=== PATIENT | male | born 1935 | race African-American/Black ===

== ENCOUNTER 2016-06-08 19:23 | Observation (INO) | payer MEDICARE ==
[2016-06-08] VITALS (8 sets, daily range): BP systolic 181–237; BP diastolic 73–108; PULSE 58–81; RESP 18–20; TEMP 97.5–97.8; O2SAT 96–99
[~2016-06-08] VITALS: Ht 180.3 cm; Wt 87.3 kg
[~2016-06-08 19:23] MED LIST: ADAL30TA10 PO; ASPI81 PO; LISI-586 PO; LORTA5 PO; LOVA40TA PO; METF500 PO; NAPR250T57 PO
[2016-06-08] MEDS ORDERED: SODIUM CHLORIDE 0.9% FLUSH 5 ML FLUSH IVF PRN ×2 (19:30→21:45)
[2016-06-08] MEDS ORDERED: ASPIRIN 325 MG TAB PO ONE (19:45)
[2016-06-08] MEDS ORDERED: NITROGLYCERIN 0.4 MG SL 25 TABS/BTL SL ONE (19:45)
[2016-06-08] MEDS ORDERED: LISI20TA PO (19:49)
[2016-06-08] MEDS ORDERED: NAPR500T PO (19:49)
[2016-06-08] MEDS ORDERED: METF500T PO (19:49)
[2016-06-08] MEDS ORDERED: ASPI81CH CHEW (19:49)
--- NOTE | 2016-06-08 19:56 | PD ---
HPI Chief Complaint: Chest Pain Time Seen by Provider: 19:53 Travel History International Travel<30 days: No Contact w/Intl Traveler<30days: No Traveled to known affect area: No History of Present Illness HPI 80-year-old male that presents to the ED for evaluation of severe left-sided chest pain that started about a couple of hours ago. Per patient he denies any injury. He is never had anything like this before. He does have a history of hypertension, diabetes, smoking as well as family history of heart disease. He is never had any problems with his heart. He has no senior occupational therapist. He appears to be compliant with medications. Per patient he does take aspirin every day but he did took one today. Per patient the pain is sharp and constant. States mainly on the left side. Does radiate to the left arm. States having some dizziness as well. No abdominal pain. No nausea or vomiting. No allergies to medication. PFSH Past Medical History Cancer: Yes (prostate) Diabetes: Yes Patient Takes Glucophage: Yes Diminished Hearing: Yes Glaucoma: No Hepatitis: No Hiatal Hernia: No Hypertension: Yes Medical other: Yes (colonoscopy) Thyroid Disease: No Influenza Vaccination: No Past Surgical History Abdominal Surgery: No Cardiac Surgery: No Ear Surgery: No Endocrine Surgery: No Eye Surgery: Yes (BILATERAL CATARACTS REMOVED) Genitourinary Surgery: No Gynecologic Surgery: No Oral Surgery: No Thoracic Surgery: No Other Surgery: Yes Social History Alcohol Use: No Tobacco Use: Yes (1 ppd) Substance Use: No Allergies-Medications (Allergen,Severity, Reaction): Coded Allergies: No Known Allergies (Unverified , 06/08/16) Reported Meds & Prescriptions Reported Meds & Active Scripts Active Reported Naproxen 500 Mg Tab 500 Mg PO BID Metformin (Metformin HCl) 500 Mg Tab 500 Mg PO BIDPC With meals Lisinopril-Hctz 20-12.5 Mg Tab 1 Tab PO BID Aspirin 81 Mg Chew 162 Mg CHEW DAILY Review of Systems General / Constitutional: No: Fever, Chills, Weight Gain, Weight Loss, Other Eyes: No: Diploplia, Blurred Vision, Photophobia, Drainage, Redness, Foreign Body Sensation, Pain, Tearing, Blind Spots, Visual changes, Blindness, Other HENT: No: Headaches, Vertigo, Lightheadedness, Sore Throat, Rhinitis, Rhinorrhea, Congestion, Nosebleed, Neck Stiffness, Neck Pain, Masses, Gingival Bleeding, Dental Difficulties, Ear Discharge, Earache, Other Cardiovascular: Positive: Chest Pain or Discomfort, No: Palpitations, Irregular Rhythm, Tachycardia, Diaphoresis, Syncope, Dyspnea on exertion, Varicosities, Edema, Cyanosis, Varicosities, Phlebitis, Claudication, Other Respiratory: Positive: Shortness of Breath, No: Cough, Wheezing, Sneezing, Orthopnea, Hemoptysis, Stridor, Night Sweats, Pleuritic Pain, Other Gastrointestinal: No: Nausea, Vomiting, Diarrhea, Abdominal Pain, Hematemesis, Hematochezia, Constipation, Changes in Bowel Habits, Indigestion, Dysphagia, Loss of Appetite, Other Genitourinary: No: Urgency, Frequency, Dysuria, Nocturia, Hematuria, Decreased Urinary Output, Oliguria, Hesitancy, Dribbling, Incontinence, Pelvic Pain, Flank Pain, Dyspareunia, Discharge, Dysmenorrhea, Menorrhagia, Metorrhagia, Vaginal Bleeding, Other Musculoskeletal: No: Myalgias, Arthralgias, Limited ROM, Weakness, Cramping, Edema, Pain, Atrophy, Other Skin: No Rash, No Itching, No Dryness, No Lumps, No Hives, No Change in Pigmentation, No Change in nails, No Alopecia, No Lesions, No Breast Lumps, No Breast Tenderness, No Breast Swelling, No Other Neurologic: No: Weakness, Dizziness, Syncope, Focal Abnormalities, Coordination Problem, Tremor, Ataxia, Headache, Change in Mentation, Slurred Speech, Paresthesia, Incontinence, Seizures, Sensory Disturbance, Other Psychiatric: No: Anxiety, Depression, Suicidal Ideations, Disorder of Thought, Mood Disorder, Substance Abuse, Homicidal Ideation, Other Endocrine: No: Heat Intolerance, Cold Intolerance, Polyuria, Polydipsia, Other Hematologic/Lymphatic: No: Easy Bruising, Lymph Node Enlargement, Other Physical Exam Narrative GENERAL: SKIN: Warm and dry. HEAD: Atraumatic. Normocephalic. EYES: Pupils equal and round. No scleral icterus. No injection or drainage. ENT: No nasal bleeding or discharge. Mucous membranes pink and moist. Tongue is midline. No uvula deviation. NECK: Trachea midline. No JVD. CARDIOVASCULAR: Regular rate and rhythm. No murmurs, S3, S4. Chest and is not reproducible with touch. RESPIRATORY: No accessory muscle use. Clear to auscultation. Breath sounds equal bilaterally. GASTROINTESTINAL: Abdomen soft, non-tender, nondistended. Hepatic and splenic margins not palpable. MUSCULOSKELETAL: Extremities without clubbing, cyanosis, or edema. No obvious deformities. Full range of motion of the upper and lower extremity is bilaterally. 2+ pulses bilaterally. NEUROLOGICAL: Awake and alert. No obvious cranial nerve deficits. Motor grossly within normal limits. Five out of 5 muscle strength in the arms and legs. Normal speech. PSYCHIATRIC: Appropriate mood and affect; insight and judgment normal. Data Data Last Documented VS Vital Signs Date Time Temp Pulse Resp B/P Pulse Ox O2 Delivery O2 Flow Rate FiO2 06/08/16 21:27 75 18 201/85 96 Room Air 06/08/16 19:43 97.8 Orders Electrocardiogram (06/08/16 19:30) Ckmb (Isoenzyme) Profile (06/08/16 19:30) Complete Blood Count With Diff (06/08/16 19:30) Comprehensive Metabolic Panel (06/08/16 19:30) Magnesium (Mg) (06/08/16 19:30) Prothrombin Time / Inr (Pt) (06/08/16 19:30) Act Partial Throm Time (Ptt) (06/08/16 19:30) Troponin I (06/08/16 19:30) Lipase (06/08/16 19:30) Chest, Single Ap (06/08/16 19:30) Ecg Monitoring (06/08/16 19:30) Bilateral Bp Monitoring (06/08/16 19:30) Iv Access Insert/Monitor (06/08/16 19:30) Oximetry (06/08/16 19:30) Oxygen Administration (06/08/16 19:30) Sodium Chloride 0.9% Flush (Ns Flush) (06/08/16 19:30) Aspirin (Aspirin) (06/08/16 19:45) Nitroglycerin Sl (Nitrostat Sl) (06/08/16 19:45) CKMB (06/08/16 19:40) CKMB% (06/08/16 19:40) Admit Order (Ed Use Only) (06/08/16 21:44) Activity Bed Rest With Brp (06/08/16 21:45) Vital Signs (Adult) Q4H (06/08/16 21:45) Cardiac Rhythm .As Directed (06/08/16 21:45) ^ Notify Dr: Other .PRN (06/08/16 21:45) ^ Notify Dr. Parameters (06/08/16 21:45) Resp Oxygen Nasal Cannula (06/08/16 ) Ckmb (Isoenzyme) Profile (06/08/16 22:40) Ckmb (Isoenzyme) Profile (06/09/16 01:40) Troponin I (06/08/16 22:40) Troponin I (06/09/16 01:40) Electrocardiogram (06/08/16 22:40) Electrocardiogram (06/09/16 01:40) ^ Obtain (06/08/16 21:45) Sodium Chloride 0.9% Flush (Ns Flush) (06/08/16 21:45) Sodium Chloride 0.9% Flush (Ns Flush) (06/09/16 09:00) Acetaminophen (Tylenol) (06/08/16 21:45) Acetamin-Hydrocod 325-7.5 Mg ([place] 7.5 (06/08/16 21:45) Nitroglycerin 2% Oint (Nitroglycerin 2% (06/09/16 00:00) Medicare Sales Executive / Telemetry HOLA.Q8H (06/08/16 21:45) Labs Laboratory Tests Test 06/08/16 19:40 White Blood Count 7.4 TH/MM3 Red Blood Count 4.46 MIL/MM3 Hemoglobin 9.1 GM/DL Hematocrit 29.5 % Mean Corpuscular Volume 66.1 FL Mean Corpuscular Hemoglobin 20.4 PG Mean Corpuscular Hemoglobin 30.9 % Concent Red Cell Distribution Width 18.3 % Platelet Count 240 TH/MM3 Mean Platelet Volume 8.4 FL Neutrophils (%) (Auto) % Lymphocytes (%) (Auto) % Monocytes (%) (Auto) % Eosinophils (%) (Auto) % Basophils (%) (Auto) % Neutrophils # (Auto) TH/MM3 Lymphocytes # (Auto) TH/MM3 Monocytes # (Auto) TH/MM3 Eosinophils # (Auto) TH/MM3 Basophils # (Auto) TH/MM3 CBC Comment AUTO DIFF Prothrombin Time 10.8 SEC Prothromb Time International 1.0 RATIO Ratio Activated Partial 25.8 SEC Thromboplast Time Sodium Level 139 MEQ/L Potassium Level 3.6 MEQ/L Chloride Level 101 MEQ/L Carbon Dioxide Level 31.3 MEQ/L Anion Gap 7 MEQ/L Blood Urea Nitrogen 17 MG/DL Creatinine 1.30 MG/DL Estimat Glomerular Filtration 64 ML/MIN Rate Random Glucose 145 MG/DL Calcium Level 8.7 MG/DL Magnesium Level 2.1 MG/DL Total Bilirubin 0.4 MG/DL Aspartate Amino Transf 18 U/L (AST/SGOT) Alanine Aminotransferase 23 U/L (ALT/SGPT) Alkaline Phosphatase 69 U/L Total Creatine Kinase 605 U/L Creatine Kinase MB 5.0 NG/ML Creatine Kinase MB % 0.8 % Troponin I 0.03 NG/ML Total Protein 7.4 GM/DL Albumin 4.0 GM/DL Lipase 156 U/L [facility] Medical Decision Making Medical Screen Exam Complete: Yes Emergency Medical Condition: Yes Medical Record Reviewed: Yes Interpretation(s) EKG shows sinus rhythm with no sign of acute ischemia or arrhythmia read by me and attending. CBC & BMP Diagram 06/08/16 19:40 Troponin and CK-MB negative. LFTs and lipase within normal limits Last Impressions Chest X-Ray 06/08/16 193 Signed Impressions: Service Date/Time: Saturday, June 08, 2016 19:54 - CONCLUSION: No evidence of consolidating airspace disease or significant congestion. Albaro Antonio MD Differential Diagnosis Chest pain versus an STEMI versus STEMI versus a typical chest pain versus pneumonia versus mass versus costochondritis Narrative Course 81-year-old male that presents to the ED for evaluation of left-sided chest pain. Patient was properly examined and was found to have signs and symptoms consistent with appears to be concerning for ACS. Patient has multiple risk factors including age, hypertension, diabetes, smoker. Labs and imaging ordered. Patient was given aspirin as well as nitroglycerin. Case was discussed in my attending who agrees with plan. Labs and imaging showed no obvious sign of acute at this time. No obvious sign of CAD at this time. Impression patient so has the discomfort and his blood pressure has been very high. With one nitroglycerin patient's blood pressure became that in the 180s systolic. Patient does appear to have some hypertensive urgency. Case was discussed in my attending agrees patient requires admission for CAD rule out an hypertensive urgency. [facility] hospitalist was contacted and Dr. Wilkerson recommends admission to the chest pain center instead. Patient was admitted to the chest pain center Procedures EKG Prior to Arrival: No Diagnosis Primary Impression: Chest pain in adult Admitting Information Admitting Physician Requests: Observation Jasvir Marlow Jun 08, 2016 19:56
--- NOTE | 2016-06-08 20:31 | RADRPT ---
EXAM DATE/TIME: 06/08/2016 19:54 [facility] COMPARISON: No previous studies available for comparison. INDICATIONS : Chest pain. MEDICAL HISTORY : None. SURGICAL HISTORY : None. ENCOUNTER: Initial ACUITY: 1 day PAIN SCORE: 5/10 LOCATION: Left chest FINDINGS: A single view of the chest demonstrates the lungs to be symmetrically aerated without evidence of mas s, infiltrate or effusion. The cardiomediastinal contours are unremarkable. Osseous structures are intact. CONCLUSION: No evidence of consolidating airspace disease or significant congestion. Albaro Antonio MD on June 08, 2016 at 20:29 Board Certified Radiologist. This report was verified electronically.
[2016-06-08 20:33] LABS: APTT (PATIENT) 25.8 SEC (24.3-30.1); PROTHROMBIN TIME - PATIENT 10.8 SEC (9.8-11.6)
[2016-06-08 20:42] LABS: ANION GAP 7 MEQ/L (5-15); AST (GOT) 18 U/L (15-37); BICARBONATE 31.3 MEQ/L (21.0-32.0); BLOOD UREA NITROGEN 17 MG/DL (7-18); CHLORIDE 101 MEQ/L (98-107); GLOMERULAR FILTRATION RATE 64 ML/MIN (>89); MAGNESIUM 2.1 MG/DL (1.5-2.5); POTASSIUM 3.6 MEQ/L (3.5-5.1); SODIUM (NA) 139 MEQ/L (136-145)
[2016-06-08 20:46] LABS: ALKALINE PHOSPHATASE 69 U/L (45-117); ALT (GPT) 23 U/L (12-78); CREATINE KINASE 605 U/L (39-308); TOTAL BILIRUBIN ADULT 0.4 MG/DL (0.2-1.0)
[2016-06-08 21:17] LABS: HEMATOCRIT 29.5 % (39.0-51.0); MEAN CELL VOLUME 66.1 FL (80.0-100.0); MEAN CORPUSCULAR HEMOGLOBIN 20.4 PG (27.0-34.0); MEAN CORPUSCULAR HGB CONC 30.9 % (32.0-36.0); PLATELET COUNT 240 TH/MM3 (150-450); RED BLOOD COUNT 4.46 MIL/MM3 (4.50-5.90); RED CELL DISTRIBUTION WIDTH 18.3 % (11.6-17.2); WHITE BLOOD COUNT 7.4 TH/MM3 (4.0-11.0)
[2016-06-08 21:32] LABS: HEMO FLAGS AUTO DIFF
[2016-06-08] MEDS ORDERED: ACETAMINOPHEN 500 MG CPLT PO PRN (21:45)
[2016-06-08 22:08] LABS: BANDS 1 % (0-6); EOSINOPHILS 2 % (0-4); NEUTROPHIL # MANUAL DIFF 4.5 TH/MM3 (1.8-7.7); POLYS (SEG NEUTROPHILS) 60 % (16-70); WBC DIFF SAMPLE 100
[2016-06-08 22:09] LABS: PLATELET ESTIMATE SMEAR NORMAL (NORMAL); PLATELET MORPHOLOGY NORMAL (NORMAL); SCAN/DIFF FINAL DIFF MANUAL
[2016-06-08] MEDS: ACETAMINOPHEN/HYDROcodone 325 MG/7.5 MG TAB PO PRN (22:28)
[2016-06-08] MEDS ORDERED: NITROGLYCERIN 0.4 MG SL 25 TABS/BTL SL PRN (22:30)
[2016-06-08 23:38] LABS: CKMB 5.2 NG/ML (0.5-3.6)
[2016-06-09] MEDS: NITROGLYCERIN 2% OINT 1 GM PACKET TOP SCH ×3 (00:12→12:00)
[2016-06-09 00:46] VITALS: PULSE 56
[2016-06-09 03:04] LABS: CKMB 5.2 NG/ML (0.5-3.6)
[2016-06-09 05:37] VITALS: BP 171/82; PULSE 77; RESP 18; TEMP 98.1; O2SAT 96
[2016-06-09 07:50] VITALS: BP 183/81; PULSE 75; RESP 18; TEMP 97.1; O2SAT 96
[2016-06-09 08:30] VITALS: PULSE 77
[2016-06-09] MEDS ORDERED: SODIUM CHLORIDE 0.9% FLUSH 5 ML FLUSH IVF SCH (09:00)
[2016-06-09] MEDS ORDERED: ASPIRIN 325 MG TAB PO SCH (09:45)
[2016-06-09] MEDS ORDERED: GLUCAGON 1 MG/ML VIAL IM/SQ PRN (09:45)
[2016-06-09] MEDS ORDERED: cloNIDine HCL 0.1 MG TAB PO PRN (09:45)
[2016-06-09] MEDS ORDERED: DEXTROSE 50% IN WATER 50 ML VIAL(D50) IV PRN (09:45)
[2016-06-09] MEDS ORDERED: NON-FORMULARY DRUG (Lisinopril-Hctz 1 TAB) PO SCH (09:45)
[2016-06-09 09:59] VITALS: O2SAT 93
[2016-06-09] MEDS ORDERED: PANTOPRAZOLE SOD 40 MG DELAYED RELEASE TAB PO SCH (10:00)
[2016-06-09] MEDS ORDERED: LISINOPRIL 20 MG TAB PO SCH (10:00)
[2016-06-09] MEDS ORDERED: RESP: ALBUTEROL 2.5 MG/IPRATROPIUM 0.5 MG NEB (SCH) INH ONE (10:00)
[2016-06-09] MEDS ORDERED: HYDROCHLOROTHIAZIDE 25 MG TAB PO SCH (10:00)
--- NOTE | 2016-06-09 10:16 | HHI.HP ---
[facility] Primary Care Physician Melita Fernandez M.D. Chief Complaint Chest pain History of Present Illness This is a 81-year-old male that presents to the emergency department with a complaint of a chest discomfort that began yesterday afternoon while watching television. He describes a sharp pain. He states it lasted for several hours but went away some time and asleep last evening. The discomfort is no longer there. He had no associated shortness breath, nausea, or diaphoresis. Denies recent illness. Denies fevers or chills. He cannot recall having any stress test. His primary care physician is Dr. Melita Fernandez. He has history of hypertension, diabetes, and hyperlipidemia and tobacco abuse. Review of Systems General: Patient denies fevers, chills recent, and recent travel HEENT: Patient denies headache, sore throat, difficulty swallowing. Cardiovascular: Has the chest discomfort as mentioned above. Denies diaphoresis. Denies sensation of heart beating rapidly or irregularly. No syncope. Respiratory: Denies shortness of breath or inspirational chest discomfort. Denies coughing wheezing or hemoptysis. GI: Patient denies nausea, vomiting, diarrhea, abdominal pain, bloody stools. Musculoskeletal: Patient denies joint pain or edema. Denies calf pain or edema. Neurovascular: Patient denies numbness, tingling, weakness in extremities. Denies headache. Endocrine: Denies polyuria and polydipsia. Hematologic: Denies easy bruising. Skin: Denies rash or itching. Past Family Social History Allergies: Coded Allergies: No Known Allergies (Unverified , 06/08/16) Past Medical History Hypertension, diabetes, tobacco abuse, hyperlipidemia however he states his primary care physician took him off the medication for hyperlipidemia. Denies known CAD. Past Surgical History Noncontributory. Reported Medications Reported Meds & Active Scripts Active Reported Naproxen 500 Mg Tab 500 Mg PO BID Metformin (Metformin HCl) 500 Mg Tab 500 Mg PO BIDPC With meals Lisinopril-Hctz 20-12.5 Mg Tab 1 Tab PO BID Aspirin 81 Mg Chew 162 Mg CHEW DAILY Active Ordered Medications Current Medications Medications (Trade) Dose Ordered Sig/Alex Route Start Time Stop Time Status Last Admin (NS Flush) 2 ml UNSCH PRN IVF 06/08/16 19:30 06/08/16 19:57 (NS Flush) 2 ml UNSCH PRN IVF 06/08/16 21:45 (NS Flush) 2 ml BID IVF 06/09/16 09:00 06/09/16 09:00 (Tylenol) 500 mg Q4H PRN PO 06/08/16 21:45 ([place] 7.5-325 Mg) 1 tab Q4H PRN PO 06/08/16 21:45 06/08/16 22:28 (Nitroglycerin 2% Oint) 1 inch Q6HR TOP 06/09/16 00:00 06/09/16 00:12 (Nitrostat Sl) 0.4 mg Q5M PRN SL 06/08/16 22:30 (Aspirin) 325 mg DAILY PO 06/09/16 09:45 (Duoneb Neb) 1 ampule STAT ONCE INH 06/09/16 10:00 06/09/16 10:01 06/09/16 09:56 (Catapres) 0.1 mg Q4H PRN PO 06/09/16 09:45 (Protonix) 40 mg DAILY PO 06/09/16 10:00 (D50w (Vial) Inj) 25 ml UNSCH PRN IV 06/09/16 09:45 (Glucagon Inj) 1 mg UNSCH PRN IM/SQ 06/09/16 09:45 (Prinivil) 20 mg BID PO 06/09/16 10:00 (Hydrodiuril) 12.5 mg BID PO 06/09/16 10:00 Family History Denies family history of CAD. Social History Patient continues to smoke 1 pack of service daily and has done so for 63 years. He denies alcohol or illicit drugs. He lives with his of 54 years. Physical Exam Vital Signs Vital Signs Date Time Temp Pulse Resp B/P Pulse Ox O2 Delivery O2 Flow Rate FiO2 06/09/16 09:59 93 21 06/09/16 07:50 97.1 75 18 183/81 96 06/09/16 05:37 98.1 77 18 171/82 96 06/09/16 00:46 56 06/09/16 00:11 18 06/08/16 23:16 58 18 190/91 96 Room Air 06/08/16 21:50 71 18 181/73 99 Room Air 06/08/16 21:49 96 06/08/16 21:27 75 18 201/85 96 Room Air 06/08/16 20:03 75 20 188/84 99 Room Air 06/08/16 19:43 97.8 75 20 207/102 98 Room Air 06/08/16 19:31 76 18 224/104 97 06/08/16 19:28 97.5 81 18 237/108 96 Room Air Physical Exam GENERAL: This is a well-nourished, well-developed patient, in no apparent distress. Patient speaks in clear complete sentences. Patient is pleasant. HEENT: Head is atraumatic and normocephalic. Neck is supple without lymphadenopathy and trachea is midline. No JVD or carotid bruits. CARDIOVASCULAR: Regular rate and rhythm without murmurs, gallops, or rubs. RESPIRATORY: Clear to auscultation. Breath sounds equal bilaterally. No wheezes , rales, or rhonchi. Chest wall is nontender. No use of accessory muscles. GASTROINTESTINAL: Abdomen is nontender, nondistended. Abdomen soft. No obvious pulsatile mass or bruit. No CVA tenderness. Strong femoral pulses bilaterally. Normal bowel sounds in all quadrants. MUSCULOSKELETAL: Patient is moving upper and lower extremities freely. No calf tenderness or edema, no Homans sign. Strong pulses in upper and lower extremities. NEUROLOGICAL: Patient is alert and oriented. Cranial nerves 2-12 are grossly intact. No focal deficits and speech is clear. SKIN: No rash and turgor is normal. Laboratory Laboratory Tests Test 06/08/16 06/08/16 06/09/16 19:40 22:45 01:40 White Blood Count 7.4 Red Blood Count 4.46 Hemoglobin 9.1 Hematocrit 29.5 Mean Corpuscular Volume 66.1 Mean Corpuscular Hemoglobin 20.4 Mean Corpuscular Hemoglobin 30.9 Concent Red Cell Distribution Width 18.3 Platelet Count 240 Mean Platelet Volume 8.4 Neutrophils (%) (Auto) Lymphocytes (%) (Auto) Monocytes (%) (Auto) Eosinophils (%) (Auto) Basophils (%) (Auto) Neutrophils # (Auto) Lymphocytes # (Auto) Monocytes # (Auto) Eosinophils # (Auto) Basophils # (Auto) CBC Comment AUTO DIFF Differential Total Cells 100 Counted Neutrophils % (Manual) 60 Band Neutrophils % 1 Lymphocytes % 31 Monocytes % 6 Eosinophils % 2 Neutrophils # (Manual) 4.5 Differential Comment FINAL DIFF MANUAL Platelet Estimate NORMAL Platelet Morphology Comment NORMAL Prothrombin Time 10.8 Prothromb Time International 1.0 Ratio Activated Partial 25.8 Thromboplast Time Sodium Level 139 Potassium Level 3.6 Chloride Level 101 Carbon Dioxide Level 31.3 Anion Gap 7 Blood Urea Nitrogen 17 Creatinine 1.30 Estimat Glomerular Filtration 64 Rate Random Glucose 145 Calcium Level 8.7 Magnesium Level 2.1 Total Bilirubin 0.4 Aspartate Amino Transf 18 (AST/SGOT) Alanine Aminotransferase 23 (ALT/SGPT) Alkaline Phosphatase 69 Total Creatine Kinase 605 550 551 Creatine Kinase MB 5.0 5.2 5.2 Creatine Kinase MB % 0.8 0.9 0.9 Troponin I 0.03 0.03 0.03 Total Protein 7.4 Albumin 4.0 Lipase 156 Result Diagram: 06/08/16193906/08/161939 Imaging Last Impressions Chest X-Ray 06/08/161929 Signed Impressions: Service Date/Time: Wednesday, June 08, 2016 19:54 - CONCLUSION: No evidence of consolidating airspace disease or significant congestion. Albaro Antonio MD Course EKGs have sinus rhythm to sinus arrhythmia with nonspecific lateral ST T changes. Assessment and Plan Assessment and Plan * Chest pain: Patient had serial cardiac enzymes and EKGs for ruling out purposes. Will be evaluated by Dr. Rain in the chest pain center. He will undergo a Lexiscan. He will likely be discharged home if the stress test were to be nonischemic. A repeated CBC is still pending to reevaluate anemia. His hemoglobin was 9.1 at admission yesterday. * Hypertension: Patient's blood pressure was quite high when he came into the ED. His blood pressure is still elevated this morning. We'll continue his current medication and possibly adding Norvasc. * Diabetes: We'll hold metformin and have sliding scale insulin coverage. He will need to follow a diabetic diet at discharge and continues medication. * Hyperlipidemia: He states that the medication was discontinued by his physician. He will need to discuss this further with his physician. * Anemia: We'll reassess with repeated CBC. He denies blood in stool and denies history of anemia. * Tobacco abuse: Patient was counseled on importance of smoking cessation. Sylvester Ramirez Jun 09, 2016 10:15
[2016-06-09] MEDS ORDERED: REGADENOSON INJ 0.4 MG/5 ML SYR ONE (10:18)
[2016-06-09] MEDS ORDERED: INSULIN ASPART SUPPLEMENTAL SCALE SQ SCH (11:00)
--- NOTE | 2016-06-09 11:55 | EKG ---
Date Performed: 06/08/2016 Time Performed: 19:36:04 PTAGE: 81 years EKG: Sinus rhythm LEFT VENTRICULAR HYPERTROPHY AND ST-T CHANGE ABNORMAL ECG PREVIOUS TRACING : 07/29/2009 10.59 DOCTOR: Rasheed Crandall Interpretating Date/Time 06/09/2016 11:53:38
[2016-06-09] MEDS ORDERED: RESP: ALBUTEROL 2.5 MG/IPRATROPIUM 0.5 MG NEB (PRN) INH (12:00)
--- NOTE | 2016-06-09 12:00 | EKG ---
Date Performed: 06/08/2016 Time Performed: 22:40:17 PTAGE: 81 years EKG: Sinus rhythm LEFT VENTRICULAR HYPERTROPHY AND ST-T CHANGE ABNORMAL ECG PREVIOUS TRACING : 06/08/2016 19.36 DOCTOR: Rasheed Crandall Interpretating Date/Time 06/09/2016 11:58:05
--- NOTE | 2016-06-09 12:02 | EKG ---
Date Performed: 06/09/2016 Time Performed: 01:48:09 PTAGE: 81 years EKG: Sinus rhythm WITH SINUS ARRHYTHMIA LEFT VENTRICULAR HYPERTROPHY AND ST-T CHANGE ABNORMAL ECG PREVIOUS TRACING : 06/08/2016 22.40 DOCTOR: Rasheed Crandall Interpretating Date/Time 06/09/2016 12:01:15
--- NOTE | 2016-06-09 12:32 | TR ---
Date Performed: 06/09/2016 Time Performed: 11:19:02 DOCTOR: Rasheed Crandall DRUG LIST: CLINICAL HISTORY: REASON FOR TEST: CHEST PAIN REASON FOR ENDING: OBSERVATION: CONCLUSION: Lexiscan stress test was performed under standard four minute protocol. Radionuclide was injected one minute prior to ending the test. Developed dyspnea, blood pressure was markedly niurka vated. ECG tracings show flattened st-depression leads II, III, AVF, V4-V6 which are borderline posat estrada ischemic changes. Recovery was quick and uneventful with resolution of dyspnea, blood pressure i mproved but systolic still mildly elevated. Nuclear imaging and interpretation are pending. COMMENTS:
--- NOTE | 2016-06-09 12:55 | RADRPT ---
EXAM DATE/TIME: 06/09/2016 10:38 [facility] COMPARISON: CHEST SINGLE AP, June 08, 2016, 19:54. INDICATIONS : Left chest pain with radiation to left arm and dizziness for 1 day. Angina. DOSE: 26.3 mCi Tc99m Myoview at stress. 8.5 mCi Tc99m Myoview at rest. 0.4 mg Lexiscan STRESS SYMPTOMS: Dyspnea. EJECTION FRACTION: 65% MEDICAL HISTORY : Hypertension. Diabetes mellitus type 2. Smoker. SURGICAL HISTORY : None. ENCOUNTER: Initial ACUITY: 1 day PAIN SCALE: 9/10 LOCATION: Left chest TECHNIQUE: The patient underwent pharmacologic stress with infusion of prescribed dose. Continuous ECG tracing was monitored during stress. Gated SPECT imaging was performed after stress and conventional SPECT i maging was performed at rest. The examination was performed on a SPECT/CT scanner, both attenuation and non-corrected datasets were reviewed. FINDINGS: DISTRIBUTION: The maximum perfused segment at stress is in the anterolateral wall. PERFUSION STUDY: The pattern of perfusion at stress is within normal limits. No fixed or reversible perfusion defect i s identified. SSS=0. GATED STUDY: There is intact wall motion and thickening without hypokinetic or dyskinetic segments. CONCLUSION: 1. Normal left ventricle perfusion without fixed or reversible perfusion defect identified. 2. Normal left ventricle wall motion with a calculated ejection fraction of 65%. RISK CATEGORY: Low (<1% Annual Mortality Rate) Harvey Joseph MD on June 09, 2016 at 12:51 Board Certified Radiologist. This report was verified electronically.
[2016-06-09] MEDS: ACETAMINOPHEN/HYDROcodone 325 MG/7.5 MG TAB PO PRN (12:59)
[2016-06-09 13:19] LABS: HEMATOCRIT 28.2 % (39.0-51.0); MEAN CELL VOLUME 65.2 FL (80.0-100.0); MEAN CORPUSCULAR HEMOGLOBIN 20.6 PG (27.0-34.0); MEAN CORPUSCULAR HGB CONC 31.6 % (32.0-36.0); PLATELET COUNT 223 TH/MM3 (150-450); RED BLOOD COUNT 4.32 MIL/MM3 (4.50-5.90); RED CELL DISTRIBUTION WIDTH 18.1 % (11.6-17.2); WHITE BLOOD COUNT 6.8 TH/MM3 (4.0-11.0)
[2016-06-09 13:21] LABS: HEMO FLAGS AUTO DIFF
[2016-06-09 13:59] LABS: BANDS 1 % (0-6); EOSINOPHILS 2 % (0-4); METAMYELOCYTES 1 % (0-1); NEUTROPHIL # MANUAL DIFF 4.6 TH/MM3 (1.8-7.7); POLYS (SEG NEUTROPHILS) 65 % (16-70); WBC DIFF SAMPLE 100
[2016-06-09 14:00] LABS: HELMET CELLS OCC (NORMAL); KERATOCYTES OCC (NORMAL)
[2016-06-09 14:01] LABS: ACANTHOCYTES OCC (NORMAL); PLATELET ESTIMATE SMEAR NORMAL (NORMAL); PLATELET MORPHOLOGY NORMAL (NORMAL); SCAN/DIFF FINAL DIFF MANUAL
[2016-06-09] MEDS ORDERED: AMLO5TAB2 PO (15:22)
[2016-06-09] MEDS ORDERED: PROT40TA PO (15:22)
--- NOTE | 2016-06-09 15:24 | HHI.DCPOC ---
Discharge Care Plan Diagnosis: (1) Chest pain (2) Hypertension (3) DM (diabetes mellitus) (4) Anemia (5) Hyperlipidemia (6) Tobacco abuse Goals to Promote Your Health * To prevent worsening of your condition and complications * To maintain your health at the optimal level Directions to Meet Your Goals Take your medications as prescribed Follow your dietary instruction Follow activity as directed Keep your appointments as scheduled Take your immunizations and boosters as scheduled If your symptoms worsen call your PCP, if no PCP go to Urgent Care Center or Emergency Room Smoking is Dangerous to Your Health. Avoid second hand smoke Call the 24-hour hour crisis hotline for domestic abuse at Sylvester Ramirez Jun 09, 2016 15:24
[2016-06-09 15:30] VITALS: BP 190/78; PULSE 66; RESP 18; TEMP 97.2; O2SAT 95
[2016-06-09] MEDS ORDERED: amLODIPine BESYLATE 5 MG TAB PO ONE (15:30)
[2016-06-09] MEDS ORDERED: PANTOPRAZOLE SOD 40 MG DELAYED RELEASE TAB PO ONE (15:30)
== END 2016-06-09 16:55 | disposition home or self-care (01) ==
LOC: NEPE 19:23 → NEDA 21:46 → NEPGCP 23:44
PROVIDERS: ADMIT Internal Medicine Cardiovascular Disease; ATTEND Internal Medicine Cardiovascular Disease
DX: R07.9 Chest pain, unspecified (principal); I10 Essential (primary) hypertension; E11.9 Type 2 diabetes mellitus without complications; E78.5 Hyperlipidemia, unspecified; D64.9 Anemia, unspecified; F17.210 Nicotine dependence, cigarettes, uncomplicated; R94.31 Abnormal electrocardiogram [ECG] [EKG]; Z79.82 Long term (current) use of aspirin
CPT/HCPCS: 71010; 78452; 80053; 82550; 82552; 82948; 83690; 83735; 84484; 85007; 85027; 85610; 85730; 93005; 93017; 94664; 99285; A9502; G0378; J1815; J2785

== ENCOUNTER 2016-08-15 13:54 | Observation (INO) | payer MEDICARE ==
[~2016-08-15] VITALS: Ht 180.3 cm; Wt 87.0 kg
[2016-08-15] VITALS (15 sets, daily range): BP systolic 154–218; BP diastolic 74–104; PULSE 77–95; RESP 20–23; TEMP 96.5–98.7; O2SAT 90–100
[~2016-08-15 13:54] MED LIST changes: -ADAL30TA10 PO; +AMLO5TAB2 PO; -ASPI81 PO; -LISI-586 PO; +LISI20TA PO; -LORTA5 PO; -LOVA40TA PO; -METF500 PO; +METF500T PO; -NAPR250T57 PO; +PROT40TA PO
--- NOTE | 2016-08-15 14:03 | PD ---
Physical Exam Date Seen by Provider: August 15, 2016 Time Seen by Provider: 14:02 Narrative 81 year old male presents to the emergency department sent by Dr. Fernandez for evaluation of shortness of breath, 28-36 resp, decreased breth sounds. PCP is concerned of PNA or CHF. Patient has back pain. He has history of prostate CA. Vital signs reviewed. Patient awaiting bed placement. Data Data Last Documented VS Vital Signs Date Time Temp Pulse Resp B/P Pulse Ox O2 Delivery O2 Flow Rate FiO2 08/15/16 13:58 98.7 82 20 195/91 92 Room Air [facility] Supervised Visit with JHONNY: Haydee Wall August 15, 2016 14:03
[2016-08-15] MEDS ORDERED: SODIUM CHLORIDE 0.9% FLUSH 10 ML FLUSH IVF PRN (14:15)
--- NOTE | 2016-08-15 14:17 | PD ---
HPI Chief Complaint: Respiratory Symptoms Time Seen by Provider: 14:14 Travel History International Travel<30 days: No Contact w/Intl Traveler<30days: No Traveled to known affect area: No History of Present Illness HPI 81-year-old male with history of hypertension, prostate cancer, presents to the ER today because he has had a 2 weeks history of shortness of breath or heavy breathing according to his . He denies any chest pains, coughing, fevers, or other symptoms. he was seen by his primary care physician, Dr. Fernandez, today and was sent in for further evaluation of the shortness of breath. Modifying Factors: None Associated Signs & Symptoms: Shortness of breath, dyspnea on exertion for 2 weeks Risk Factors: History of prostate cancer. PFSH Past Medical History Heart Rhythm Problems: No Cancer: Yes (prostate) Cardiac Catheterization: No Cardiovascular Problems: No High Cholesterol: No Congestive Heart Failure: No Diabetes: Yes Diminished Hearing: Yes Glaucoma: No Hepatitis: No Hiatal Hernia: No Hypertension: Yes Thyroid Disease: No Past Surgical History Abdominal Surgery: No Cardiac Surgery: No Coronary Artery Bypass Graft: No Ear Surgery: No Endocrine Surgery: No Eye Surgery: Yes (BILATERAL CATARACTS REMOVED) Genitourinary Surgery: No Gynecologic Surgery: No Oral Surgery: No Thoracic Surgery: No Other Surgery: Yes Social History Alcohol Use: No Tobacco Use: Yes (1 ppd) Substance Use: No Allergies-Medications (Allergen,Severity, Reaction): Coded Allergies: No Known Allergies (Unverified , 06/08/16) Reported Meds & Prescriptions Reported Meds & Active Scripts Active Protonix (Pantoprazole Sodium) 40 Mg Tab 40 Mg PO DAILY Amlodipine (Amlodipine Besylate) 5 Mg Tab 5 Mg PO DAILY Reported Metformin (Metformin HCl) 500 Mg Tab 500 Mg PO BIDPC With meals Lisinopril-Hctz 20-12.5 Mg Tab 1 Tab PO BID Review of Systems Except as stated in HPI: all other systems reviewed are Neg Physical Exam Narrative GENERAL: Well-developed elderly -[place]er male with mild shortness of breath, mild respiratory distress on getting into the stretcher. Awake and oriented 3. SKIN: Focused skin assessment warm/dry. HEAD: Atraumatic. Normocephalic. EYES: Pupils equal and round. No scleral icterus. No injection or drainage. ENT: No nasal bleeding or discharge. Mucous membranes pink and moist. NECK: Trachea midline. Supple. No masses. CARDIOVASCULAR: Regular rate and rhythm. No murmur appreciated. RESPIRATORY: Mild accessory muscle use. Mild wheezing throughout with right basilar crackles. Breath sounds equal bilaterally. GASTROINTESTINAL: Abdomen soft, non-tender, nondistended. Hepatic and splenic margins not palpable. MUSCULOSKELETAL: No obvious deformities. No clubbing. No cyanosis. No edema. NEUROLOGICAL: Awake and alert. No obvious cranial nerve deficits. Motor grossly within normal limits. Normal speech. PSYCHIATRIC: Appropriate mood and affect; insight and judgment normal. Data Data Last Documented VS Vital Signs Date Time Temp Pulse Resp B/P Pulse Ox O2 Delivery O2 Flow Rate FiO2 08/15/16 15:25 80 22 218/100 93 Room Air 08/15/16 13:58 98.7 Orders Complete Blood Count With Diff (08/15/16 14:11) Comprehensive Metabolic Panel (08/15/16 14:11) B-Type Natriuretic Peptide (08/15/16 14:11) Act Partial Throm Time (Ptt) (08/15/16 14:11) Prothrombin Time / Inr (Pt) (08/15/16 14:11) Troponin I (08/15/16 14:11) Iv Access Insert/Monitor (08/15/16 14:11) Electrocardiogram (08/15/16 14:11) Ecg Monitoring (08/15/16 14:11) Oximetry (08/15/16 14:11) Oxygen Administration (08/15/16 14:11) Chest, Single Ap (08/15/16 14:11) Sodium Chloride 0.9% Flush (Ns Flush) (08/15/16 14:15) Ckmb (Isoenzyme) Profile (08/15/16 14:11) CKMB (08/15/16 14:25) CKMB% (08/15/16 14:25) Type And Screen (08/15/16 15:39) Red Blood Cells (Rbc) (08/15/16 15:39) Blood Product Administration .UPON TRANSFUSION (08/15/16 15:39) Sodium Chlor 0.9% 250 Ml Inj (Ns 250 Ml (08/15/16 15:45) Admit Order (Ed Use Only) (08/15/16 15:43) Labs Laboratory Tests Test 08/15/16 14: White Blood Count 7.2 TH/MM3 Red Blood Count 4.28 MIL/MM3 Hemoglobin 7.6 GM/DL Hematocrit 25.4 % Mean Corpuscular Volume 59.3 FL Mean Corpuscular Hemoglobin 17.8 PG Mean Corpuscular Hemoglobin 30.1 % Concent Red Cell Distribution Width 20.2 % Platelet Count 196 TH/MM3 Mean Platelet Volume 8.7 FL Neutrophils (%) (Auto) 50.6 % Lymphocytes (%) (Auto) 40.9 % Monocytes (%) (Auto) 6.7 % Eosinophils (%) (Auto) 1.3 % Basophils (%) (Auto) 0.5 % Neutrophils # (Auto) 3.7 TH/MM3 Lymphocytes # (Auto) 3.0 TH/MM3 Monocytes # (Auto) 0.5 TH/MM3 Eosinophils # (Auto) 0.1 TH/MM3 Basophils # (Auto) 0.0 TH/MM3 CBC Comment AUTO DIFF Prothrombin Time 10.7 SEC Prothromb Time International 1.0 RATIO Ratio Activated Partial 24.6 SEC Thromboplast Time Sodium Level 136 MEQ/L Potassium Level 3.9 MEQ/L Chloride Level 99 MEQ/L Carbon Dioxide Level 30.3 MEQ/L Anion Gap 7 MEQ/L Blood Urea Nitrogen 19 MG/DL Creatinine 1.14 MG/DL Estimat Glomerular Filtration 74 ML/MIN Rate Random Glucose 146 MG/DL Calcium Level 9.1 MG/DL Total Bilirubin 0.5 MG/DL Aspartate Amino Transf 27 U/L (AST/SGOT) Alanine Aminotransferase 33 U/L (ALT/SGPT) Alkaline Phosphatase 83 U/L Total Creatine Kinase 783 U/L Creatine Kinase MB 8.3 NG/ML Creatine Kinase MB % 1.1 % Troponin I LESS THAN 0.02 NG/ML B-Type Natriuretic Peptide 67 PG/ML Total Protein 7.7 GM/DL Albumin 4.0 GM/DL [facility] Medical Decision Making Medical Screen Exam Complete: Yes Emergency Medical Condition: Yes Medical Record Reviewed: Yes Interpretation(s) EKG shows NSR, no ST elevation or depression, and no arrhythmias. No significant T-wave inversions. Laboratory Tests Test 08/15/16 14:25 Red Blood Count 4.28 MIL/MM3 (4.50-5.90) Hemoglobin 7.6 GM/DL (13.0-17.0) Hematocrit 25.4 % (39.0-51.0) Mean Corpuscular Volume 59.3 FL (80.0-100.0) Mean Corpuscular Hemoglobin 17.8 PG (27.0-34.0) Mean Corpuscular Hemoglobin 30.1 % Concent (32.0-36.0) Red Cell Distribution Width 20.2 % (11.6-17.2) Blood Urea Nitrogen 19 MG/DL (7-18) Estimat Glomerular Filtration 74 ML/MIN (>89) Rate Random Glucose 146 MG/DL (74-106) Total Creatine Kinase 783 U/L (39-308) Creatine Kinase MB 8.3 NG/ML (0.5-3.6) Troponin I LESS THAN 0.02 NG/ML (0.02-0.05) Last 24 hours Impressions Chest X-Ray 08/15/16 1411 Signed Impressions: Service Date/Time: Saturday, August 15, 2016 14:20 - CONCLUSION: Minimal bibasilar parenchymal changes. Merrill Burrell MD FACR Differential Diagnosis Shortness of breathpneumonia versus COPD versus CHF versus PE Narrative Course Lab work shows significant anemia likely causing symptoms. 2 units of PRBCs were ordered for the patient. Chest x-ray did not show any signs of obvious pneumonia and BNP is unremarkable. He is Hemoccult negative. At this point, my plan would be to admit the patient for further evaluation. Case is discussed with Dr. Mcwilliams for admission. HemaPrompt Point of Care Internal Pos. & Neg. Controls: Passed Fecal Specimen Occult Blood: Negative Diagnosis Primary Impression: Anemia Additional Impression: Shortness of breath Admitting Information Admitting Physician Requests: Admit Clair Georges MD August 15, 2016 14:17
--- NOTE | 2016-08-15 14:50 | RADRPT ---
EXAM DATE/TIME: 08/15/2016 14:20 [facility] COMPARISON: CHEST SINGLE AP, June 08, 2016, 19:54. INDICATIONS : Short of breath. MEDICAL HISTORY : Hypertension. Diabetes mellitus type 2. Smoker. SURGICAL HISTORY : None. ENCOUNTER: Initial ACUITY: 2 days PAIN SCORE: 0/10 LOCATION: chest FINDINGS: Minimal bibasilar pregnancies are noted. The heart and pulmonary vascularity are normal. The portion of the bony skeleton visualized is unremarkable. CONCLUSION: Minimal bibasilar parenchymal changes. Merrill Burrell MD FACR on August 15, 2016 at 14:47 Board Certified Radiologist. This report was verified electronically.
[2016-08-15 14:59] LABS: ALT (GPT) 33 U/L (12-78); ANION GAP 7 MEQ/L (5-15); AST (GOT) 27 U/L (15-37); BICARBONATE 30.3 MEQ/L (21.0-32.0); BLOOD UREA NITROGEN 19 MG/DL (7-18); CHLORIDE 99 MEQ/L (98-107); GLOMERULAR FILTRATION RATE 74 ML/MIN (>89); POTASSIUM 3.9 MEQ/L (3.5-5.1); SODIUM (NA) 136 MEQ/L (136-145)
[2016-08-15 15:03] LABS: ALKALINE PHOSPHATASE 83 U/L (45-117); CREATINE KINASE 783 U/L (39-308); TOTAL BILIRUBIN ADULT 0.5 MG/DL (0.2-1.0)
[2016-08-15 15:04] LABS: APTT (PATIENT) 24.6 SEC (24.3-30.1); PROTHROMBIN TIME - PATIENT 10.7 SEC (9.8-11.6)
[2016-08-15 15:05] LABS: AUTOMATED NEUTROPHIL # 3.7 TH/MM3 (1.8-7.7); BASOPHIL % 0.5 % (0.0-2.0); EOSINOPHIL # 0.1 TH/MM3 (0-0.4); EOSINOPHIL % 1.3 % (0.0-4.0); HEMATOCRIT 25.4 % (39.0-51.0); LYMPH % 40.9 % (9.0-44.0); MEAN CELL VOLUME 59.3 FL (80.0-100.0); MEAN CORPUSCULAR HEMOGLOBIN 17.8 PG (27.0-34.0); MEAN CORPUSCULAR HGB CONC 30.1 % (32.0-36.0); MONO % 6.7 % (0.0-8.0); NEUT % 50.6 % (16.0-70.0); PLATELET COUNT 196 TH/MM3 (150-450); RED BLOOD COUNT 4.28 MIL/MM3 (4.50-5.90); RED CELL DISTRIBUTION WIDTH 20.2 % (11.6-17.2); WHITE BLOOD COUNT 7.2 TH/MM3 (4.0-11.0)
[2016-08-15 15:15] LABS: CKMB 8.3 NG/ML (0.5-3.6)
[2016-08-15 15:16] LABS: HEMO FLAGS AUTO DIFF
[2016-08-15] MEDS ORDERED: SODIUM CHLOR 0.9% 250 ML INJ 250 ML IV ONE (15:45)
[2016-08-15] MEDS ORDERED: hydrALAZINE HCL 20 MG/ML VIAL IV PRN (15:45)
[2016-08-15] MEDS ORDERED: SODIUM CHLORIDE 0.9% FLUSH 10 ML FLUSH IV FLUSH PRN (15:45)
[2016-08-15] MEDS ORDERED: ENALAPRILAT 1.25 MG/ML VIAL IV PRN (15:45)
[2016-08-15] MEDS ORDERED: ONDANSETRON HCL 4 MG/2 ML VIAL IVP PRN (15:45)
[2016-08-15] MEDS ORDERED: ACETAMINOPHEN 325 MG TAB PO PRN (15:45)
[2016-08-15] MEDS ORDERED: NALOXONE HCL 0.4 MG/ML AMP IV PRN (15:45)
[2016-08-15 15:56] LABS: EOSINOPHILS 4 % (0-4); NEUTROPHIL # MANUAL DIFF 4.8 TH/MM3 (1.8-7.7); PLATELET ESTIMATE SMEAR NORMAL (NORMAL); PLATELET MORPHOLOGY NORMAL (NORMAL); POLYS (SEG NEUTROPHILS) 66 % (16-70); SCAN/DIFF FINAL DIFF MANUAL; WBC DIFF SAMPLE 100
[2016-08-15 15:57] LABS: ACANTHOCYTES OCC (NORMAL); KERATOCYTES OCC (NORMAL); TARGET CELLS 1+ (NORMAL)
[2016-08-15] MEDS ORDERED: GLUCAGON 1 MG/ML VIAL OTHER PRN (16:00)
[2016-08-15] MEDS: INSULIN ASPART SUPPLEMENTAL SCALE SQ SCH ×2 (16:00→22:04)
[2016-08-15] MEDS ORDERED: DEXTROSE 50% IN WATER 50 ML VIAL(D50) IV PUSH PRN (16:00)
[2016-08-15] MEDS: methylPREDNISolone SOD SUCC 40 MG/1 ML VIAL IV PUSH SCH ×2 (17:06→21:56)
--- NOTE | 2016-08-15 18:40 | MH ---
cc: SVETLANAVANESA DATE OF ADMISSION: 08/15/2016 DATE OF : 1935 CHIEF COMPLAINT Shortness of breath. HISTORY OF PRESENT ILLNESS This a pleasant 81-year-old black male who has been in his usual state of health up until the past few weeks. The patient has noted some shortness of breath and is complaining of being very weak to the point that he has not been able to be up and walking around as he usually is. The patient does have a significant history of tobacco abuse and has expiratory wheezes heard throughout his anterior and posterior lobes. The patient denies any chest pain. States that he has not been sick recently with any fever, but he has had some cough and he is coughing up some thick sputum but unknown color and consistency at this time. The patient went to see his PCP today, Dr. Fernandez. He advised him to come to the hospital to be evaluated further, the patient did. He was found to have prostate cancer [id number] years ago according to the but opted for no surgery and no treatment. The patient is alert, awake, he answers simple symptomatic questions but is a poor historian. His is in the room and assists with some of his history. PAST MEDICAL HISTORY 1. Tobacco abuse, currently still smokes. 2. Prostate cancer. 3. Diabetes mellitus type 2. 4. Hypertension. 5. Obesity. 6. Degenerative disc disease. PAST SURGICAL HISTORY Bilateral cataracts. ALLERGIES NO KNOWN. MEDICATIONS REPORTED 1. Lisinopril. 2. Metformin. SOCIAL HISTORY The patient denies any alcohol use. A pack a day smoker since his early teen years. He is . Currently lives at home with his , she is by his side. REVIEW OF SYSTEMS Limited due to the patient is a poor historian. He did admit to generalized weakness, decreased mobility and shortness of breath. Other systems unremarkable. He states had a normal bowel movement two days ago. PHYSICAL EXAMINATION VITAL SIGNS: Temperature is 98.7, pulse 80, respirations 22, blood pressure 195/91 on admission, now 218/100, O2 sat 93 on room air. GENERAL: Obese black male, looks to be his stated age, resting in the bed. He is awake and attempts to answer questions appropriately about his symptoms. He remembers no history to speak of. HEAD, EYES, EARS, NOSE AND THROAT: Atraumatic, normocephalic. PERRLA at 2. Mucous membranes are moist. No scleral icterus. NECK: Neck is thick, supple. HEART: Heart sounds S1 and S2. No murmurs, rubs or gallops. He has no pedal edema and his pulses are palpable. His lower extremities are warm. LUNGS: Lung sounds, inspiratory and expiratory wheezing noted anteriorly and posteriorly with diminished sounds at his mid and lower bases. Positive for cough. ABDOMEN: Abdomen is round, soft, nontender, nondistended. Active bowel sounds noted. MUSCULOSKELETAL: He moves his upper and lower extremities on command. No obvious deformities. SKIN: His skin is dry with several moles and skin tags on his face. His mucous membranes are pink and moist. NEUROLOGIC: He is alert, awake. Speech is clear. Poor historian but understands current simple questions about how he is feeling. PSYCHIATRIC: Appropriate mood and affect. DIAGNOSTIC DATA WBC count 7.2, RBC 4.28, hemoglobin 7.6, hematocrit 25.4, platelet count 196, he has 1+ target cells, platelet morphology is normal. PT/INR is 1. Chemistries: Sodium is 136, potassium 3.9, chloride 99, carbon dioxide 30.3, anion gap 7, BUN 19, creatinine 1.14, glucose is 146, GFR 74. Abnormals noted: Total creatine kinase is 783, CK MB is 8.3. Troponin is less than 0.02, BNP is 67, albumin 4, total protein 7.7. IMAGING STUDIES Chest x-ray: Minimal bibasilar parenchymal changes. ASSESSMENT 1. Anemia, symptomatic with dyspnea. 2. Malignant hypertension accelerated uncontrolled. 3. Obesity. 4. Acute kidney injury with dehydration. 5. History of diabetes mellitus type 2 with some mild hyperglycemia. 6. COPD exacerbation. PLAN 1. Admit initially for observation. 2. Monitor the patient's vital signs q.4. 3. Keep him on bedrest for now but he can be out of bed with assistance only for bowel regimen. 4. In the emergency room, the patient has 2 units of packed RBCs that have been ordered. He has a patent IV in and normal saline for his blood. 5. He will be monitored on ECG. 6. We will draw labs in the morning. 7. For the patient's COPD, we are going to start him on some Duo-Neb, give him some IV steroids and keep him on low-dose O2 to assist and attempt control of his respiratory effort. The patient's chest x-ray did not show any obvious signs of pneumonia, any abnormals were probably due to his COPD. The patient is FULL CODE/FULL AGGRESSIVE CARE and we will follow. DICTATED BY: Celina Melo NP Vanesa Mcwilliams MD JP/DARYL /5:00 PM /5:26 PM PT SEEN AND EXAMINED ABOVE CHART REVIEWED INCLUDING LABS MEDS AND NOTES AND RAD DATA DW PT AND WIFEAT BEDSIDE PLAN OF CARE RASHEED IQBAL RN NARCISAD
[2016-08-15] MEDS: RESP: ALBUTEROL 2.5 MG/IPRATROPIUM 0.5 MG NEB (SCH) NEB ×2 (19:13→22:49)
[2016-08-15] MEDS ORDERED: NON-FORMULARY DRUG (Lisinopril-Hctz 1 TAB) PO SCH (21:00)
[2016-08-15] MEDS: cloNIDine HCL 0.1 MG TAB PO PRN (21:57)
[2016-08-15] MEDS: SODIUM CHLORIDE 0.9% FLUSH 10 ML FLUSH IV FLUSH SCH (21:58)
[2016-08-16] VITALS (14 sets, daily range): BP systolic 105–177; BP diastolic 54–99; PULSE 74–96; RESP 18–22; TEMP 96–98.7; O2SAT 88–100
[2016-08-16] MEDS: RESP: ALBUTEROL 2.5 MG/IPRATROPIUM 0.5 MG NEB (SCH) NEB ×5 (03:14→19:47)
[2016-08-16] MEDS: SODIUM CHLOR 0.9% 1000 ML INJ 1,000 ML IV SCH ×2 (05:04→18:24)
[2016-08-16] MEDS: methylPREDNISolone SOD SUCC 40 MG/1 ML VIAL IV PUSH SCH ×3 (05:41→21:34)
[2016-08-16] MEDS: INSULIN ASPART SUPPLEMENTAL SCALE SQ SCH ×4 (05:42→21:00)
[2016-08-16 07:03] LABS: AUTOMATED NEUTROPHIL # 7.7 TH/MM3 (1.8-7.7); BASOPHIL % 0.2 % (0.0-2.0); HEMATOCRIT 30.2 % (39.0-51.0); LYMPH % 4.1 % (9.0-44.0); LYMPHOCYTE # 0.4 TH/MM3 (1.0-4.8); MEAN CELL VOLUME 64.5 FL (80.0-100.0); MEAN CORPUSCULAR HEMOGLOBIN 19.5 PG (27.0-34.0); MEAN CORPUSCULAR HGB CONC 30.2 % (32.0-36.0); MONO % 11.5 % (0.0-8.0); NEUT % 84.2 % (16.0-70.0); PLATELET COUNT 158 TH/MM3 (150-450); RED BLOOD COUNT 4.68 MIL/MM3 (4.50-5.90); RED CELL DISTRIBUTION WIDTH 24.7 % (11.6-17.2); WHITE BLOOD COUNT 9.1 TH/MM3 (4.0-11.0)
[2016-08-16 07:16] LABS: HEMO FLAGS AUTO DIFF
[2016-08-16 07:35] LABS: BICARBONATE 27.4 MEQ/L (21.0-32.0); POTASSIUM 4.2 MEQ/L (3.5-5.1)
[2016-08-16] MEDS: amLODIPine BESYLATE 5 MG TAB PO SCH (08:08)
[2016-08-16] MEDS: LISINOPRIL 20 MG TAB PO SCH (08:08)
[2016-08-16] MEDS: PANTOPRAZOLE SOD 40 MG DELAYED RELEASE TAB PO SCH (08:08)
[2016-08-16] MEDS: HYDROCHLOROTHIAZIDE 25 MG TAB PO SCH (08:09)
[2016-08-16] MEDS: SODIUM CHLORIDE 0.9% FLUSH 10 ML FLUSH IV FLUSH SCH ×2 (08:13→21:35)
--- NOTE | 2016-08-16 08:13 | HHI.PR ---
Subjective Subjective Remarks some sob no cp eating good no abd pain no n/v anxious to go home daughter and at bsd Review of Systems Constitutional Constitutional Remarks 12 point ROS completed, unreliable Vitals/Results Vital Signs Vital Signs Date Time Temp Pulse Resp B/P Pulse Ox O2 Delivery O2 Flow Rate FiO2 08/16/16 07:27 93 Nasal Cannula 2.00 08/16/16 07:08 98.0 82 22 107/55 98 08/16/16 06:22 97.2 84 20 117/66 98 08/16/16 05:07 97.0 85 20 133/81 99 08/16/16 03:41 97.3 82 19 105/54 96 08/16/16 03:41 97.3 82 19 105/54 96 08/16/16 02:50 96.0 93 20 134/76 100 08/16/16 01:50 96.3 74 20 136/64 95 08/16/16 01:35 96.7 83 20 150/67 96 08/16/16 01:20 96.0 81 20 144/99 97 08/16/16 01:00 98.2 85 22 154/75 100 08/15/16 22:30 98.2 85 21 154/74 100 08/15/16 22:30 98.2 85 22 154/74 100 08/15/16 21:30 97.6 95 20 190/96 98 08/15/16 21:10 97.6 95 22 190/96 98 08/15/16 20:35 98.2 94 23 190/80 100 08/15/16 20:15 92 08/15/16 20:05 98.2 95 22 188/95 100 08/15/16 20:05 98.2 95 22 188/95 100 08/15/16 19:13 94 Nasal Cannula 2.00 08/15/16 19:00 97.6 89 189/93 99 08/15/16 18:31 96.5 85 181/80 95 08/15/16 17:45 91 22 199/86 93 Room Air 08/15/16 17:00 78 22 211/98 94 Room Air 08/15/16 16:00 82 22 216/104 94 Room Air 08/15/16 15:25 80 22 218/100 93 Room Air 08/15/16 14:19 90 Room Air 08/15/16 14:19 90 Room Air 08/15/16 14:19 77 22 196/95 90 Room Air 08/15/16 14:19 78 22 90 Room Air 08/15/16 13:58 98.7 82 20 195/91 92 Room Air CBC/BMP: 08/16/16 0645 08/16/16 0645 Lab Results Laboratory Tests Test 08/15/16 08/15/16 08/15/16 08/16/16 14:25 16:30 16:40 06:45 White Blood Count 7.2 TH/MM3 9.1 TH/MM3 Red Blood Count 4.28 MIL/MM3 4.68 MIL/MM3 Hemoglobin 7.6 GM/DL 9.1 GM/DL Hematocrit 25.4 % 30.2 % Mean Corpuscular Volume 59.3 FL 64.5 FL Mean Corpuscular Hemoglobin 17.8 PG 19.5 PG Mean Corpuscular Hemoglobin 30.1 % 30.2 % Concent Red Cell Distribution Width 20.2 % 24.7 % Platelet Count 196 TH/MM3 158 TH/MM3 Mean Platelet Volume 8.7 FL 8.4 FL Neutrophils (%) (Auto) 50.6 % 84.2 % Lymphocytes (%) (Auto) 40.9 % 4.1 % Monocytes (%) (Auto) 6.7 % 11.5 % Eosinophils (%) (Auto) 1.3 % 0.0 % Basophils (%) (Auto) 0.5 % 0.2 % Neutrophils # (Auto) 3.7 TH/MM3 7.7 TH/MM3 Lymphocytes # (Auto) 3.0 TH/MM3 0.4 TH/MM3 Monocytes # (Auto) 0.5 TH/MM3 1.0 TH/MM3 Eosinophils # (Auto) 0.1 TH/MM3 0.0 TH/MM3 Basophils # (Auto) 0.0 TH/MM3 0.0 TH/MM3 CBC Comment AUTO DIFF AUTO DIFF Differential Total Cells 100 Counted Neutrophils % (Manual) 66 % Lymphocytes % 24 % Monocytes % 6 % Eosinophils % 4 % Neutrophils # (Manual) 4.8 TH/MM3 Differential Comment FINAL DIFF MANUAL Platelet Estimate NORMAL Platelet Morphology Comment NORMAL Target Cells 1+ Acanthocytes OCC Keratocytes OCC Prothrombin Time 10.7 SEC Prothromb Time International 1.0 RATIO Ratio Activated Partial 24.6 SEC Thromboplast Time Sodium Level 136 MEQ/L 140 MEQ/L Potassium Level 3.9 MEQ/L 4.2 MEQ/L Chloride Level 99 MEQ/L 102 MEQ/L Carbon Dioxide Level 30.3 MEQ/L 27.4 MEQ/L Anion Gap 7 MEQ/L 11 MEQ/L Blood Urea Nitrogen 19 MG/DL 20 MG/DL Creatinine 1.14 MG/DL 1.20 MG/DL Estimat Glomerular Filtration 74 ML/MIN 70 ML/MIN Rate Random Glucose 146 MG/DL 172 MG/DL Calcium Level 9.1 MG/DL 8.7 MG/DL Total Bilirubin 0.5 MG/DL Aspartate Amino Transf 27 U/L (AST/SGOT) Alanine Aminotransferase 33 U/L (ALT/SGPT) Alkaline Phosphatase 83 U/L Total Creatine Kinase 783 U/L 756 U/L Creatine Kinase MB 8.3 NG/ML 7.0 NG/ML Creatine Kinase MB % 1.1 % 0.9 % Troponin I LESS THAN 0.02 NG/ML B-Type Natriuretic Peptide 67 PG/ML Total Protein 7.7 GM/DL Albumin 4.0 GM/DL Blood Type B POSITIVE B POSITIVE Antibody Screen NEGATIVE Crossmatch Leukocyte-Reduced Red Blood Cells Blood Bank Comment Physical Exam General General Appearance: Well Developed, No Acute Distress, Comfortable Eyes Eye Exam: Pupils Equal, Pupils Reactive Ears & Nose Ears & Nose Exam: Nasal Mucosa [place] Throat Throat Exam: Oral Mucosa [place] & Moist Neck Neck Exam: Neck Supple, Trachea Midline Pulmonary Resp Remarks exp.. wheezes Cardiology CV Exam: Regular, Good Perfusion Gastrointestinal/Abdomen GI Exam: Soft, Non-Tender, Bowel Sounds Present, Non-Distended Musculoskeletal MS Exam: Joints Intact Integumentary Skin Exam: Warm, Dry Extremeties Extremities Exam: No Edema, Pedal Pulses Palpable Neurologic Neuro Exam: Alert, Awake, Oriented, Speech Clear, Moving All Extremities, No Focal Deficits Psychiatric Psych Exam: Appropriate Responses VTE Prophylaxis VTE Prophylaxis Device: SCDs PUD Prophylasis PUD Prophylaxis: Protonix Assessment/Plan Problem List: (1) COPD exacerbation (2) Shortness of breath (3) Anemia (4) DM (diabetes mellitus) (5) Hypertension (6) Tobacco abuse (7) Hyperlipidemia (8) Hypertensive urgency Assessment/Plan S/P PRBC, HH better 9.1/30.2 no rectal bleeding, no hematemesis heme negative in ED eating well check iron studies continue with supplemental oxygen to keep sats> 92% IV Solumedrol Duonebs walk test tobacco abuse counseling, continues to smoke and not interested in stopping accuchecks AC/HS with ISS BP improving, continue current meds continue home meds PPI for GI prophylaxis SCDs for DVT prophylaxis CM consult for DC planning, HHC, oxygen poss. PT eval for ambulation will re-evaluate how pt. tolerates activity, poss. dc this afternoon or tomorrow , d/w pt and family Labs reviewed, stable D/W RN D/W pt and family D/W Dr. Mcwilliams This patient was seen by myself and Dr. Mcwilliams, this note is written on his behalf. Problem Qualifiers (1) Anemia: (2) DM (diabetes mellitus): Qualified Code: E11.8 - Type 2 diabetes mellitus with complication, unspecified skilled nursing insulin use status (3) Hypertension: Qualified Code: I10 - Essential hypertension (4) Hyperlipidemia: Qualified Code: E78.5 - Hyperlipidemia, unspecified hyperlipidemia type Precious Schumacher August 16, 2016 08:13
--- NOTE | 2016-08-16 08:18 | HHI.FF ---
Face to Face Verification Diagnosis: (1) Shortness of breath (2) COPD exacerbation (3) Anemia Physical Therapy Order: Evaluate and Treat Home Health Nursing Order: Medical education Oxygen administration education Nursing assessment with vital signs Instructions: may need oxygen, needs nebulizer I have seen patient Jose Mckeon on 08/16/16. My clinical findings support the need for the requested home health care services because: Patient has SOB I certify that my clinical findings support that this patient is homebound because: Hx COPD- exertion dyspnea/weakness Unsteady gait/balance Precious Schumacher August 16, 2016 08:18
[2016-08-16 08:58] LABS: KERATOCYTES OCC (NORMAL); SCAN/DIFF AUTO DIFF CONFIRMED
[2016-08-16 09:00] LABS: RETIC % 3.3 % (0.4-3.0)
[2016-08-16] MEDS ORDERED: amLODIPine BESYLATE 5 MG TAB PO SCH (09:00)
[2016-08-16] MEDS ORDERED: LISINOPRIL 20 MG TAB PO SCH (09:00)
[2016-08-16 09:03] LABS: REVIEW FLAG FINAL
[2016-08-16 09:29] LABS: FERRITIN 10 NG/ML (26-388); TRANSFERRIN IRON PROFILE 271 MG/DL (200-360)
[2016-08-16] MEDS ORDERED: NEBULIZER1 MI1 (12:46)
[2016-08-16] MEDS ORDERED: OXYGENTANK NAS.CANULA (12:46)
[2016-08-16] MEDS ORDERED: IPRASOL NEB (12:48)
--- NOTE | 2016-08-16 16:01 | EKG ---
Date Performed: 08/15/2016 Time Performed: 14:16:50 PTAGE: 81 years EKG: Sinus rhythm WITH SINUS ARRHYTHMIA LEFT VENTRICULAR HYPERTROPHY AND ST-T CHANGE ABNORMAL ECG PREVIOUS TRACING on 06/09/2016 Compared to prior tracing no significant change DOCTOR: Chandan Cm Interpretating Date/Time 08/16/2016 15:59:43
[2016-08-16] MEDS: cloNIDine HCL 0.1 MG TAB PO PRN (21:34)
[2016-08-17 00:24] VITALS: BP 177/92; PULSE 92; RESP 18; TEMP 98.4; O2SAT 98
[2016-08-17] MEDS: RESP: ALBUTEROL 2.5 MG/IPRATROPIUM 0.5 MG NEB (SCH) NEB ×3 (00:41→07:54)
[2016-08-17 01:50] VITALS: PULSE 80
[2016-08-17 04:23] VITALS: BP 179/84; PULSE 83; RESP 18; TEMP 98.8; O2SAT 97
[2016-08-17] MEDS: methylPREDNISolone SOD SUCC 40 MG/1 ML VIAL IV PUSH SCH (06:21)
[2016-08-17] MEDS: INSULIN ASPART SUPPLEMENTAL SCALE SQ SCH (06:21)
[2016-08-17] MEDS: cloNIDine HCL 0.1 MG TAB PO PRN (06:22)
[2016-08-17 07:26] VITALS: BP 158/71; PULSE 94; RESP 18; TEMP 97.6; O2SAT 95
[2016-08-17] MEDS ORDERED: PRED20 PO (07:35)
--- NOTE | 2016-08-17 07:35 | HHI.DCPOC ---
Discharge Care Plan Diagnosis: (1) COPD exacerbation Your Health Problems Are: Chest Pain Goals to Promote Your Health * To prevent worsening of your condition and complications * To maintain your health at the optimal level Directions to Meet Your Goals Take your medications as prescribed Follow your dietary instruction Follow activity as directed Keep your appointments as scheduled Take your immunizations and boosters as scheduled If your symptoms worsen call your PCP, if no PCP go to Urgent Care Center or Emergency Room Smoking is Dangerous to Your Health. Avoid second hand smoke Call the 24-hour hour crisis hotline for domestic abuse at Precious Schumacher [facility] August 17, 2016 07:35
[2016-08-17 07:54] VITALS: O2SAT 96
[2016-08-17 08:00] VITALS: PULSE 91
--- NOTE | 2016-08-17 08:06 | HHI.PR ---
Subjective Subjective Remarks less sob no cp remains on oxygen, will need at home discussed dangers of smoking and oxygen use at bsd Review of Systems Constitutional Constitutional Remarks 12 point ROS completed, unreliable Vitals/Results Intake & Output 08/16/16 08/16/16 08/17/16 15:00 23:00 07:00 Intake Total 480 ml 980 ml Output Total 300 ml Balance 480 ml 980 ml -300 ml Intake Oral 480 ml 480 ml IV Total 500 ml Output Urine Total 300 ml # Voids 2 Vital Signs Vital Signs Date Time Temp Pulse Resp B/P Pulse Ox O2 Delivery O2 Flow Rate FiO2 08/17/16 07:54 96 Nasal Cannula 3.00 08/17/16 07:26 97.6 94 18 158/71 95 08/17/16 04:23 98.8 83 18 179/84 97 08/17/16 01:50 80 08/17/16 00:24 98.4 92 18 177/92 98 08/16/16 23:43 98.7 74 18 177/78 94 08/16/16 19:52 98.3 96 20 135/63 92 08/16/16 19:49 88 Nasal Cannula 2.00 08/16/16 11:39 98.6 87 20 140/61 95 CBC/BMP: 08/16/16 0645 08/16/16 0645 Physical Exam General General Appearance: Well Developed, No Acute Distress, Comfortable Eyes Eye Exam: Pupils Equal, Pupils Reactive Ears & Nose Ears & Nose Exam: Nasal Mucosa [place] Throat Throat Exam: Oral Mucosa [place] & Moist Neck Neck Exam: Neck Supple, Trachea Midline Pulmonary Resp Remarks exp.. wheezes Cardiology CV Exam: Regular, Good Perfusion Gastrointestinal/Abdomen GI Exam: Soft, Non-Tender, Bowel Sounds Present, Non-Distended Musculoskeletal MS Exam: Joints Intact Integumentary Skin Exam: Warm, Dry Extremeties Extremities Exam: No Edema, Pedal Pulses Palpable Neurologic Neuro Exam: Alert, Awake, Oriented, Speech Clear, Moving All Extremities, No Focal Deficits Psychiatric Psych Exam: Appropriate Responses VTE Prophylaxis VTE Prophylaxis Device: SCDs PUD Prophylasis PUD Prophylaxis: Protonix Assessment/Plan Problem List: (1) COPD (chronic obstructive pulmonary disease) (2) Shortness of breath (3) Anemia (4) DM (diabetes mellitus) (5) Hypertension (6) Tobacco abuse (7) Hyperlipidemia (8) Hypertensive urgency Assessment/Plan S/P PRBC, HH better 9.130.2 no rectal bleeding, no hematemesis heme negative in ED eating well low iron stores start PO iron continue with supplemental oxygen to keep sats> 92% IV Solumedrol Duonebs walk test-needs oxygen tobacco abuse counseling, continues to smoke -states he will try to quit discussed dangers of smoking and oxygen use, verbalizes understanding accuchecks AC/HS with ISS BP improving, continue current meds continue home meds PPI for GI prophylaxis SCDs for DVT prophylaxis CM consult for DC planning, HHC. PT eval for ambulation overall pt. improved, needs oxygen discharge home with hhc and oxygen F/U PCP Diet-heart healthy Activity-as tolerated D/W RN D/W pt and family D/W Dr. Mcwilliams D/W CM This patient was seen by myself and Dr. Mcwilliams, this note is written on his behalf. Problem Qualifiers (1) COPD (chronic obstructive pulmonary disease): Qualified Code: J44.9 - Chronic obstructive pulmonary disease, unspecified COPD type (2) Anemia: (3) DM (diabetes mellitus): Qualified Code: E11.8 - Type 2 diabetes mellitus with complication, unspecified equipment operator intermodal yard insulin use status (4) Hypertension: Qualified Code: I10 - Essential hypertension (5) Hyperlipidemia: Qualified Code: E78.5 - Hyperlipidemia, unspecified hyperlipidemia type Precious Schumacher August 17, 2016 08:06
--- NOTE | 2016-08-17 08:08 | HHI.DS ---
Discharge Summary Admission Date August 15, 2016 at 15:45 Discharge Date: August 17, 2016 Admitting Diagnosis symptomatic anemia (1) Shortness of breath (2) COPD (chronic obstructive pulmonary disease) (3) DM (diabetes mellitus) (4) Hypertension (5) Tobacco abuse (6) Hyperlipidemia (7) Anemia (8) Hypertensive urgency CBC/BMP: 08/16/16 0645 08/16/16 0645 Significant Findings Laboratory Tests Test 08/15/16 08/16/16 14:25 06:45 Red Blood Count 4.28 MIL/MM3 (4.50-5.90) Hemoglobin 7.6 GM/DL 9.1 GM/DL (13.0-17.0) (13.0-17.0) Hematocrit 25.4 % 30.2 % (39.0-51.0) (39.0-51.0) Mean Corpuscular Volume 59.3 FL 64.5 FL (80.0-100.0) (80.0-100.0) Mean Corpuscular Hemoglobin 17.8 PG 19.5 PG (27.0-34.0) (27.0-34.0) Mean Corpuscular Hemoglobin 30.1 % 30.2 % Concent (32.0-36.0) (32.0-36.0) Red Cell Distribution Width 20.2 % 24.7 % (11.6-17.2) (11.6-17.2) Target Cells 1+ (NORMAL) Blood Urea Nitrogen 19 MG/DL (7-18) 20 MG/DL (7-18) Estimat Glomerular Filtration 74 ML/MIN (>89) 70 ML/MIN (>89) Rate Random Glucose 146 MG/DL 172 MG/DL (74-106) (74-106) Total Creatine Kinase 783 U/L 756 U/L (39-308) (39-308) Creatine Kinase MB 8.3 NG/ML 7.0 NG/ML (0.5-3.6) (0.5-3.6) Troponin I LESS THAN 0.02 NG/ML (0.02-0.05) Neutrophils (%) (Auto) 84.2 % (16.0-70.0) Lymphocytes (%) (Auto) 4.1 % (9.0-44.0) Monocytes (%) (Auto) 11.5 % (0.0-8.0) Lymphocytes # (Auto) 0.4 TH/MM3 (1.0-4.8) Monocytes # (Auto) 1.0 TH/MM3 (0-0.9) Reticulocyte Count 3.3 % (0.4-3.0) Absolute Reticulocyte Count 154.4 MIL/L (20.0-150.0) Iron Level 41 MCG/DL (65-175) Percent Iron Saturation 10.8 % (20-50) Ferritin 10 NG/ML (26-388) Imaging Last Impressions Chest X-Ray 08/15/16 1411 Signed Impressions: Service Date/Time: Saturday, August 15, 2016 14:20 - CONCLUSION: Minimal bibasilar parenchymal changes. Merrill Burrell MD [facility] Course This a pleasant 81-year-old black male who has been in his usual state of health up until the past few weeks. The patient has noted some shortness of breath and is complaining of being very weak to the point that he has not been able to be up and walking around as he usually is. The patient does have a significant history of tobacco abuse and had expiratory wheezes heard throughout his anterior and posterior lobes. The patient denied any chest pain. States that he had not been sick recently with any fever, but he has had some cough and he is coughing up some thick sputum but unknown color and consistency at this time. The patient went to see his PCP, Dr. Fernandez. He advised him to come to the hospital to be evaluated further, the patient did. He was found to have prostate cancer [id number] years ago according to the but opted for no surgery and no treatment. The patient is alert, awake, he answers simple symptomatic questions but was a poor historian. His was in the room and assisted with some of his history. Evaluated in the ED and found with: DIAGNOSTIC DATA WBC count 7.2, RBC 4.28, hemoglobin 7.6, hematocrit 25.4, platelet count 196, he has 1+ target cells, platelet morphology is normal. PT/INR is 1. Chemistries: Sodium is 136, potassium 3.9, chloride 99, carbon dioxide 30.3, anion gap 7, BUN 19, creatinine 1.14, glucose is 146, GFR 74. Abnormals noted: Total creatine kinase is 783, CK MB is 8.3. Troponin is less than 0.02, BNP is 67, albumin 4, total protein 7.7. IMAGING STUDIES Chest x-ray: Minimal bibasilar parenchymal changes. Admitted with: (1) COPD (chronic obstructive pulmonary disease) (2) Shortness of breath (3) Anemia (4) DM (diabetes mellitus) (5) Hypertension (6) Tobacco abuse (7) Hyperlipidemia (8) Hypertensive urgency During the course of hospitalization the following took place: Pt. admitted for further evaluation. For anemia-S/P PRBC, HH better 9.05/07.2 no rectal bleeding, no hematemesis heme negative in ED was eating well iron stores ordered-has low iron stores started on PO iron COPD exacerbation and hypoxia-continue with supplemental oxygen to keep sats> 92 % IV Solumedrol started Duonebs given walk test done-needed oxygen -CM consulted to arrange tobacco abuse counseling, continued to smoke -stated he will try to quit discussed dangers of smoking and oxygen use, verbalizes understanding accuchecks AC/HS with ISS were ordered BP improved continued current meds Norvasc increased PPI for GI prophylaxis SCDs for DVT prophylaxis CM consult for DC planning, HHC. PT eval for ambulation overall pt. improved discharged home with hhc and oxygen Instructed to F/U PCP-recommended that PCP ordered sleep study Diet-heart healthy Activity-as tolerated Pt Condition on Discharge: Stable Discharge Disposition: Disch w/ Home Health Serv Discharge Instructions DIET: Follow Instructions for: Heart Healthy Diet Activities you can perform: Weight Bearing as Elizabeth Other Activity Instructions: advised to quit smoking Follow up Referrals: PCP Follow-up New Medications: Nebulizer (Nebulizer) 1 Mis Mis 1 EA .ROUTE DIRECTED Breathing Treatment #1 Ref 0 EA Oxygen tank (Oxygen tank) 1 Ea Tank 2 LITER AUDIE.CANULA CONTINUOUS Oxygen Concentrator Portable Gaseous 2 L/min via Nasal Cannula Continuous For 99 months HYPOXEMIA PREVENTION #1 CYLINDER Prednisone (Prednisone) 20 Mg Tab 20 MG PO DIRECTED 40 MG twice a day x 3 days, then 20 MG daily x 3 days, then 10 MG daily x 3 days Inflammation #11 Ref 0 TAB Ipratropium-Albuterol Neb (Duoneb) 0.5-2.5 Mg/3 Ml Neb 1 AMPULE NEB Q4HR NEB Broncospasm #90 ML Continued Medications: Amlodipine (Amlodipine) 5 Mg Tab 5 MG PO DAILY Blood Pressure Management #30 Ref 0 TAB Lisinopril-Hctz (Lisinopril-Hctz) 20-12.5 Mg Tab 1 TAB PO BID Blood Pressure Management #30 Ref 0 TAB Metformin (Metformin) 500 Mg Tab 500 MG PO BIDPC With meals Blood Sugar Management #60 Ref 0 TAB Pantoprazole (Protonix) 40 Mg Tab 40 MG PO DAILY Reflux #30 Ref 0 TAB Precious Schumacher August 17, 2016 08:08
[2016-08-17] MEDS ORDERED: AMLO5TAB2 PO (08:11)
[2016-08-17] MEDS ORDERED: FERR1TAB36 PO (08:11)
[2016-08-17] MEDS ORDERED: AMLO2.5T PO (08:11)
[2016-08-17] MEDS ORDERED: OXYGENTANK NAS.CANULA (08:12)
[2016-08-17] MEDS: amLODIPine BESYLATE 5 MG TAB PO SCH (08:27)
[2016-08-17] MEDS: LISINOPRIL 20 MG TAB PO SCH (08:27)
[2016-08-17] MEDS: PANTOPRAZOLE SOD 40 MG DELAYED RELEASE TAB PO SCH (08:27)
[2016-08-17] MEDS: HYDROCHLOROTHIAZIDE 25 MG TAB PO SCH (08:27)
[2016-08-17] MEDS: SODIUM CHLORIDE 0.9% FLUSH 10 ML FLUSH IV FLUSH SCH (08:28)
[2016-08-17] MEDS ORDERED: WALKER WHEELS/F1 MIS ×2 (08:44→14:43)
[2016-08-17] MEDS ORDERED: NEBULIZER1 MI1 (08:45)
== END 2016-08-17 09:47 | disposition home or self-care (01) ==
LOC: NEPC 13:54 → NEDA 15:45 → INTOOBSV 15:45 → NEPFCDU 18:04
PROVIDERS: ADMIT Specialist; ATTEND Specialist
DX: D64.9 Anemia, unspecified (principal); R06.09 Other forms of dyspnea; R06.02 Shortness of breath; M54.9 Dorsalgia, unspecified; E11.8 Type 2 diabetes mellitus with unspecified complications; I10 Essential (primary) hypertension; F17.210 Nicotine dependence, cigarettes, uncomplicated; Z85.46 Personal history of malignant neoplasm of prostate
CPT/HCPCS: 36430; 71010; 80048; 80053; 82550; 82552; 82607; 82728; 82948; 83540; 83550; 83880; 84484; 85007; 85025; 85027; 85044; 85610; 85730; 86850; 86900; 86901; 86920; 93005; 94620; 94640; 94664; 97163; 99285; G0378; G8987; G8988; J0360; J1815; J2920; J7030; J7050; P9016

== ENCOUNTER 2016-08-20 00:58 | Inpatient (IN) | payer MEDICARE ==
[~2016-08-20] VITALS: Ht 182.9 cm; Wt 100.0 kg
[2016-08-20] VITALS (10 sets, daily range): BP systolic 53–218; BP diastolic 29–98; PULSE 46–130; RESP 16; TEMP 97.1; O2SAT 93–100
[~2016-08-20 00:58] MED LIST changes: +AMLO2.5T PO; +FERR1TAB36 PO; +IPRASOL NEB; +NEBULIZER1 MI1; +OXYGENTANK NAS.CANULA; +PRED20 PO; +WALKER WHEELS/F1 MIS
[2016-08-20] MEDS ORDERED: NOREPINEPHRINE 4 MG/4 ML AMP ONE (01:04)
[2016-08-20] MEDS ORDERED: HEPARIN SODIUM - IV 10,000 UNITS/10 ML VIAL IV STA (01:12)
[2016-08-20] MEDS ORDERED: SODIUM CHLOR 0.9% 1000 ML INJ 1,000 ML IV ONE ×3 (01:12→01:15)
[2016-08-20 01:14] LABS: MEAN CORPUSCULAR HGB CONC 29.8 % (32.0-36.0)
[2016-08-20] MEDS ORDERED: HEPARIN SODIUM - SQ 10,000 UNITS/ML VIAL ONE (01:15)
[2016-08-20] MEDS ORDERED: ASPIRIN 300 MG SUPP RECTAL ONE (01:15)
[2016-08-20] MEDS ORDERED: SODIUM CHLORIDE 0.9% FLUSH 10 ML FLUSH IVF PRN (01:15)
[2016-08-20 01:24] LABS: I-STAT POTASSIUM 4.2 MMOL/L (3.5-4.9)
[2016-08-20 01:30] LABS: AUTOMATED NEUTROPHIL # 10.5 TH/MM3 (1.8-7.7); BASOPHIL # 0.1 TH/MM3 (0-0.2); BASOPHIL % 0.4 % (0.0-2.0); EOSINOPHIL % 0.1 % (0.0-4.0); HEMATOCRIT 26.9 % (39.0-51.0); LYMPH % 18.3 % (9.0-44.0); LYMPHOCYTE # 2.6 TH/MM3 (1.0-4.8); MEAN CELL VOLUME 66.6 FL (80.0-100.0); MEAN CORPUSCULAR HEMOGLOBIN 19.8 PG (27.0-34.0); MONO % 8.2 % (0.0-8.0); PLATELET COUNT 159 TH/MM3 (150-450); RED BLOOD COUNT 4.04 MIL/MM3 (4.50-5.90); RED CELL DISTRIBUTION WIDTH 24.6 % (11.6-17.2); WHITE BLOOD COUNT 14.4 TH/MM3 (4.0-11.0)
[2016-08-20 01:31] LABS: HEMO FLAGS AUTO DIFF
--- NOTE | 2016-08-20 01:32 | RADRPT ---
EXAM DATE/TIME: 08/20/2016 01:11 [place] COMPARISON: CHEST SINGLE AP, August 15, 2016, 14:20. INDICATIONS : Stemi alert. MEDICAL HISTORY : Unobtainable. SURGICAL HISTORY : Unobtainable. ENCOUNTER: Initial ACUITY: 1 day PAIN SCORE: Non-responsive. LOCATION: Bilateral chest FINDINGS: A single AP supine portable view of the chest was obtained and demonstrates interval placement of an endotracheal tube with tip approximately 3 cm above the solo. A nasogastric tube is seen coursing t hrough the esophagus into the stomach. There is mild hazy opacity at the right lung base. The heart s ize remains within normal limits. Atherosclerotic calcifications are present in the aorta. There are multiple overlying electrocardiogram leads. CONCLUSION: 1. Interval intubation and placement of nasogastric tube. 2. 3. Hazy mild opacity remains at the right lung base. This may represent infiltrate. Joby Luz MD on August 20, 2016 at 1: 4. 29 Board Certified Radiologist. This report was verified electronically.
[2016-08-20 01:35] LABS: APTT (PATIENT) 39.2 SEC (24.3-30.1); INTERNATIONAL NORMALIZED RATIO 1.4 RATIO; PROTHROMBIN TIME - PATIENT 15.2 SEC (9.8-11.6)
[2016-08-20] MEDS ORDERED: HEPARIN-NS/PF INJ 500 ML ONE (01:40)
[2016-08-20 01:44] LABS: MAGNESIUM 2.5 MG/DL (1.5-2.5)
[2016-08-20] MEDS ORDERED: SODIUM CHLOR 0.9% 1000 ML INJ 1,000 ML IV SCH (01:50)
--- NOTE | 2016-08-20 01:57 | PD ---
HPI Chief Complaint: Code Blue Time Seen by Provider: 01:12 Travel History International Travel<30 days: No Contact w/Intl Traveler<30days: No Traveled to known affect area: No History of Present Illness HPI 81-year-old male with history of HTN, HLD, DM here as a cardiac arrest. Patient apparently woke up, told family members he didn't feel well and had a witnessed cardiac arrest, slumping over, becoming unresponsive. EMS was called. Bystander CPR. EMS arrived approximately 5 minutes after dispatch. Found to be in PEA. Had appropriate ACLS en route with intermittent ROSC 4. Given 4 rounds of epi, 2 rounds of bicarbonate with ROSC prior to arrival. No family is present at this time, no past medical history available. Total downtime in summation approximately 10-15 minutes. Per brief chart review patient was admitted in June for chest pain and had a rule out with negative stress test. No previous cardiac catheterization on file. PFSH Past Medical History Heart Rhythm Problems: No Cancer: Yes (prostate) Cardiac Catheterization: No Cardiovascular Problems: No High Cholesterol: No Congestive Heart Failure: No Diabetes: Yes Diminished Hearing: Yes Glaucoma: No Hepatitis: No Hiatal Hernia: No Hypertension: Yes Respiratory: No Thyroid Disease: No Past Surgical History Abdominal Surgery: No Cardiac Surgery: No Coronary Artery Bypass Graft: No Ear Surgery: No Endocrine Surgery: No Eye Surgery: Yes (BILATERAL CATARACTS REMOVED) Genitourinary Surgery: No Gynecologic Surgery: No Oral Surgery: No Thoracic Surgery: No Other Surgery: Yes Social History Alcohol Use: No Tobacco Use: Yes (1 ppd) Substance Use: No Allergies-Medications (Allergen,Severity, Reaction): Coded Allergies: No Known Allergies (Unverified , 06/08/16) Reported Meds & Prescriptions Reported Meds & Active Scripts Active Walker with Front Wheels (Device) 1 Mis Mis 1 Ea .ROUTE DIRECTED Nebulizer 1 Mis Mis 1 Ea .ROUTE DIRECTED Oxygen tank (Oxygen) 1 Ea Tank 2 Liter AUDIE.CANULA CONTINUOUS Oxygen Concentrator Portable Gaseous 2 L/min via Nasal Cannula Continuous For 99 months Iron (Ferrous Sulfate) 325 Mg Tab 325 Mg PO BIDPC Take after a meal. Amlodipine (Amlodipine Besylate) 5 Mg Tab 5 Mg PO DAILY Amlodipine (Amlodipine Besylate) 2.5 Mg Tab 2.5 Mg PO HS Prednisone 20 Mg Tab 20 Mg PO DIRECTED 40 MG twice a day x 3 days, then 20 MG daily x 3 days, then 10 MG daily x 3 days Duoneb (Ipratropium-Albuterol Neb) 0.5-2.5 Mg/3 Ml Neb 1 Ampule NEB Q4HR NEB Protonix (Pantoprazole Sodium) 40 Mg Tab 40 Mg PO DAILY Reported Metformin (Metformin HCl) 500 Mg Tab 500 Mg PO BIDPC With meals Lisinopril-Hctz 20-12.5 Mg Tab 1 Tab PO BID Review of Systems ROS Limitations: Clinical Condition, Intubated, Altered Mental Status Physical Exam Exam Limitations: Clinical Condition, Altered Mental Status Narrative GENERAL: Elderly male unresponsive SKIN: Focused skin assessment warm/dry. HEAD: Atraumatic. Normocephalic. EYES: Pupils equal and round. 5 mm and nonreactive. No scleral icterus. No injection or drainage. ENT: Combitube in the oropharynx Mucous membranes pink and moist. NECK: Supple CARDIOVASCULAR: Regular rate and rhythm. No murmur appreciated. RESPIRATORY: No accessory muscle use. Coarse bilateral breath sounds GASTROINTESTINAL: Abdomen soft, non-tender, nondistended. Obese MUSCULOSKELETAL: No obvious deformities. No edema. IO in tibia. NEUROLOGICAL: GCS 3 Data Data Last Documented VS Vital Signs Date Time Temp Pulse Resp B/P Pulse Ox O2 Delivery O2 Flow Rate FiO2 08/20/16 01:01 73 67/45 Orders Norepinephrine Inj (Levophed Inj) (08/20/16 01:04) Troponin I (08/20/16 01:12) Ckmb (Isoenzyme) Profile (08/20/16 01:12) Complete Blood Count With Diff (08/20/16 01:12) I-Stat Profile (08/20/16 01:12) I-Stat Creatinine (08/20/16 01:12) Calcium (08/20/16 01:12) Magnesium (Mg) (08/20/16 01:12) Prothrombin Time / Inr (Pt) (08/20/16 01:12) Act Partial Throm Time (Ptt) (08/20/16 01:12) B-Type Natriuretic Peptide (08/20/16 01:12) Chest, Single Ap (08/20/16 01:12) Electrocardiogram (08/20/16 01:12) Oxygen Administration (08/20/16 01:12) Iv Access Insert/Monitor (08/20/16 01:12) Oximetry (08/20/16 01:12) Sodium Chlor 0.9% 1000 Ml Inj (Ns 1000 M (08/20/16 01:12) Sodium Chloride 0.9% Flush (Ns Flush) (08/20/16 01:15) Heparin Inj (Heparin Inj) (08/20/16 01:12) Aspirin Supp (Aspirin Supp) (08/20/16 01:15) Arterial Blood Gas (Abg) (08/20/16 01:13) Iv Access Insert/Monitor (08/20/16 01:13) Sodium Chlor 0.9% 1000 Ml Inj (Ns 1000 M (08/20/16 01:15) Sodium Chlor 0.9% 1000 Ml Inj (Ns 1000 M (08/20/16 01:15) Heparin Inj (Heparin Inj) (08/20/16 01:15) Heparin-Ns/Pf Inj (Heparin-Ns/Pf Inj) (08/20/16 01:40) Admit Order (Ed Use Only) (08/20/16 01:46) CKMB (08/20/16 01:15) CKMB% (08/20/16 01:15) Labs Laboratory Tests Test 08/20/16 01:15 White Blood Count 14.4 TH/MM3 Red Blood Count 4.04 MIL/MM3 Hemoglobin 8.0 GM/DL Bedside Hemoglobin 10.5 G/DL Hematocrit 26.9 % Bedside Hematocrit 31.0 % Mean Corpuscular Volume 66.6 FL Mean Corpuscular Hemoglobin 19.8 PG Mean Corpuscular Hemoglobin 29.8 % Concent Red Cell Distribution Width 24.6 % Platelet Count 159 TH/MM3 Mean Platelet Volume 9.0 FL Neutrophils (%) (Auto) 73.0 % Lymphocytes (%) (Auto) 18.3 % Monocytes (%) (Auto) 8.2 % Eosinophils (%) (Auto) 0.1 % Basophils (%) (Auto) 0.4 % Neutrophils # (Auto) 10.5 TH/MM3 Lymphocytes # (Auto) 2.6 TH/MM3 Monocytes # (Auto) 1.2 TH/MM3 Eosinophils # (Auto) 0.0 TH/MM3 Basophils # (Auto) 0.1 TH/MM3 CBC Comment AUTO DIFF Prothrombin Time 15.2 SEC Prothromb Time International 1.4 RATIO Ratio Activated Partial 39.2 SEC Thromboplast Time Bedside Sodium 129 MMOL/L Bedside Potassium 4.2 MMOL/L Bedside Chloride 87 MMOL/L Bedside Blood Urea Nitrogen 22 MG/DL Bedside Creatinine 1.3 MG/DL Bedside Glucose 93 MG/DL Calcium Level 7.7 MG/DL Magnesium Level 2.5 MG/DL Total Creatine Kinase 975 U/L Troponin I 0.13 NG/ML B-Type Natriuretic Peptide 360 PG/ML MDM Medical Decision Making Medical Screen Exam Complete: Yes Emergency Medical Condition: Yes Medical Record Reviewed: Yes Differential Diagnosis 81-year-old male with history of HTN, HLD, DM here after resuscitated cardiac arrest. Differential includes ACS, arrhythmia, electrolyte abnormality, hypovolemia, hypoxia, PE, cardiac tamponade. Narrative Course Patient met by myself upon emergency department arrival, IV established and blood obtained. Palpable pulses with low blood pressure initially in the 60s systolic. 2 large bore IVs were established, given 2 L normal saline bolus and started on norepinephrine. Twelve-lead EKG was obtained showing sinus rhythm with ST elevation in lead 3, aVF, V1, V2 with reciprocal T-wave inversions throughout and ST depression in lateral leads. STEMI alert was called. Patient was intubated, please see procedure note. Post procedure check x-ray obtained showing support devices, endotracheal tube and OG and good position. Payne catheter placed. Shortly thereafter patient had recurrent cardiac arrest , PEA. He was given 1 round of epi, bicarbonate with ROSC. His norepinephrine was increased. Given aspirin, heparin. Labs were obtained showing WBC 14.4, hemoglobin 8.0, sodium 129, troponin 0.13. I spoke with Dr. Nixon Britton who agreed to take patient to cardiac [facility]. Patient was expedited with myself to cardiac [facility]. Upon arrival in cardiac [facility] patient became bradycardic from the 60s down into the low 40s. Did not respond to 0.5 mg atropine 2. He then lost pulses, PEA. He again had one round of 2 minutes of CPR, appendectomy, bicarbonate with ROSC. Patient taken to [facility] with cardiology for cardiac [facility]. I did speak with Dr. Bass of intensive medicine who will accept patient to his service for potential cooling status post cardiac catheter. Critical Care Narrative Aggregate critical care time was 45 minutes. Time to perform other separately billable procedures was not included in the critical care time. My time did not include minutes spent treating any other patients simultaneously or on activities that did not directly contribute to the patient's treatment. The services I provided to this patient were to treat and/or prevent clinically significant deterioration that could result in: Cardiopulmonary decompensation, neurologic decompensation, , disability I provided critical care services requiring my management, as noted below: Chart data review, documentation time, medication orders and management, vital sign assessments/reviewing monitor data, ordering and reviewing lab tests, ordering and interpreting/reviewing x-rays and diagnostic studies, care of the patient and discussion of the patient with the admitting physicians. Procedures Procedure Narrative Procedure deemed emergent, wrist and benefits discussed: INTUBATION: The patient was put in optimal position for the procedure. Intubation performed without medication. The patient was intubated with a 8-0 cuffed endotracheal tube. Tube placement was confirmed by visualization of the tube and balloon passing through the cords, capnometry and subsequent chest x- ray. Breath sounds were equal and well aerated bilaterally postintubation. No breath sounds over stomach. Patient tolerated procedure well. Diagnosis Primary Impression: Cardiac arrest Additional Impression: STEMI (ST elevation myocardial infarction) Qualified Code: I21.3 - ST elevation myocardial infarction (STEMI), unspecified artery Admitting Information Admitting Physician Requests: Admit Anastasia Moore MD August 20, 2016 01:57
[2016-08-20 02:00] LABS: CKMB 10.5 NG/ML (0.5-3.6)
[2016-08-20] MEDS ORDERED: DOCUSATE SODIUM 100 MG/10 ML UDC G-TUBE SCH (02:00)
[2016-08-20] MEDS ORDERED: MIDAZOLAM 100 MG/ML INJ 100 ML IV SCH (02:00)
[2016-08-20] MEDS ORDERED: MORPHINE SULFATE 4 MG/ML INJ IV PRN (02:00)
[2016-08-20] MEDS ORDERED: ONDANSETRON HCL 4 MG/2 ML VIAL IV PRN (02:00)
[2016-08-20] MEDS ORDERED: LORazepam 2 MG/ML VIAL IV PRN (02:00)
[2016-08-20] MEDS ORDERED: fentaNYL DRIP 250 ML IV SCH (02:00)
[2016-08-20] MEDS ORDERED: HEPARIN SODIUM - SQ 10,000 UNITS/ML VIAL SQ SCH (02:00)
[2016-08-20] MEDS ORDERED: METOCLOPRAMIDE HCL 10 MG/2 ML VIAL IV PRN (02:00)
[2016-08-20] MEDS ORDERED: CHLORHEXIDINE GLUCONATE 2 % 1 PACK (2 CLOTHS) TOP PRN (02:00)
[2016-08-20] MEDS ORDERED: RESP: ALBUTEROL 2.5 MG/IPRATROPIUM 0.5 MG NEB (PRN) INH (02:00)
[2016-08-20] MEDS ORDERED: ACETAMINOPHEN 325 MG TAB PO PRN (02:00)
[2016-08-20] MEDS ORDERED: SODIUM CHLORIDE 0.9% FLUSH 10 ML FLUSH PRN (02:00)
[2016-08-20] MEDS ORDERED: MISCELLANEOUS NURSING INFORMATION XX SCH (02:00)
[2016-08-20 02:05] LABS: OVALOCYTES 1+ (NORMAL); SCAN/DIFF AUTO DIFF CONFIRMED
--- NOTE | 2016-08-20 02:09 | HHI.HP ---
HPI Service Critical Care Medicine Primary Care Physician No Primary Care Physician Admission Diagnosis resuscitated cardiac arrest, STEMI Diagnosis: Travel History International Travel<30 Days: No Contact w/Intl Traveler <30 Da: No Traveled to Known Affected Are: No History of Present Illness 81-year-old male with history of hyperlipidemia diabetes mellitus presents post a cardiac arrest. Per chart documentation he woke up, told family members he didn't feel well and had a witnessed cardiac arrest, slumping over, becoming unresponsive. EMS was called. Bystander provided CPR. EMS arrived approximately 5 minutes after dispatch. The patient was found to be in a PEA. He had an appropriate ACLS en route with intermittent ROSC 4. Given 4 rounds of epinephrine, 2 rounds of bicarbonate with ROSC prior to arrival. Total downtime in summation approximately 10-15 minutes. He was emergently taken to cardiac catheter lab where he had another cardiac arrest. ROSC again after 1 cycle of CPR. Review of Systems ROS Unable to obtain patient is intubated Past Family Social History Allergies: Coded Allergies: No Known Allergies (Unverified , 06/08/16) Past Medical History Hypertension Hyperlipidemia Diabetes mellitus Tobacco use disorder Prostate cancer Past Surgical History Bilateral cataracts Reported Medications Reported Meds & Active Scripts Active Walker with Front Wheels (Device) 1 Mis Mis 1 Ea .ROUTE DIRECTED Nebulizer 1 Mis Mis 1 Ea .ROUTE DIRECTED Oxygen tank (Oxygen) 1 Ea Tank 2 Liter AUDIE.CANULA CONTINUOUS Oxygen Concentrator Portable Gaseous 2 L/min via Nasal Cannula Continuous For 99 months Iron (Ferrous Sulfate) 325 Mg Tab 325 Mg PO BIDPC Take after a meal. Amlodipine (Amlodipine Besylate) 5 Mg Tab 5 Mg PO DAILY Amlodipine (Amlodipine Besylate) 2.5 Mg Tab 2.5 Mg PO HS Prednisone 20 Mg Tab 20 Mg PO DIRECTED 40 MG twice a day x 3 days, then 20 MG daily x 3 days, then 10 MG daily x 3 days Duoneb (Ipratropium-Albuterol Neb) 0.5-2.5 Mg/3 Ml Neb 1 Ampule NEB Q4HR NEB Protonix (Pantoprazole Sodium) 40 Mg Tab 40 Mg PO DAILY Reported Metformin (Metformin HCl) 500 Mg Tab 500 Mg PO BIDPC With meals Lisinopril-Hctz 20-12.5 Mg Tab 1 Tab PO BID Active Ordered Medications Current Medications Medications (Trade) Dose Ordered Sig/Alex Route PRN Reason Start Time Stop Time Status Last Admin Dose Admin Sodium Chloride 2 ml 2 ml UNSCH PRN IVF FLUSH AFTER USING IV ACCESS 08/20/16 01:15 Sodium Chloride 1,000 ml @ 999 mls/hr BOLUS ONCE IV 08/20/16 01:15 08/20/16 02:15 Sodium Chloride 1,000 ml @ 999 mls/hr BOLUS ONCE IV 08/20/16 01:15 08/20/16 02:15 Sodium Chloride (NS 1000 ml Inj) 1,000 ml @ 84 mls/hr [id number] IV 08/20/16 01:50 Sodium Chloride (NS Flush) 2 ml UNSCH PRN .XX FLUSH AFTER USING IV ACCESS 08/20/16 02:00 UNV Sodium Chloride (NS Flush) 2 ml BID .XX 08/20/16 09:00 UNV Acetaminophen (Tylenol) 650 mg Q6H PRN PO PAIN 1-10 AND/OR FEVER >101F 08/20/16 02:00 UNV Miscellaneous Information 1 [id number] XX 08/20/16 02:00 UNV Chlorhexidine Gluconate (Chlorhexidine 2% Cloth) 3 pack Taper DAILY@04 TOP 08/20/16 04:00 08/16/17 03:59 UNV Chlorhexidine Gluconate (Chlorhexidine 2% Cloth) 3 pack UNSCH PRN TOP HYGIENIC CARE 08/20/16 02:00 UNV Family History Noncontributory Social History Tobacco use, continues to smoke No alcohol or illicit drugs Physical Exam Vital Signs Vital Signs Date Time Temp Pulse Resp B/P Pulse Ox O2 Delivery O2 Flow Rate FiO2 08/20/16 01:01 73 67/45 Physical Exam GENERAL: Elderly man unresponsive and intubated. SKIN: Warm and dry. HEAD: Normocephalic. EYES: No scleral icterus. No injection or drainage. NECK: Supple, trachea midline. No JVD or lymphadenopathy. CARDIOVASCULAR: Regular rate and rhythm without murmurs, gallops, or rubs. RESPIRATORY: Breath sounds equal bilaterally. No accessory muscle use. GASTROINTESTINAL: Abdomen soft, non-tender, nondistended. MUSCULOSKELETAL: No cyanosis, or edema. BACK: Nontender without obvious deformity. No CVA tenderness. EXTREMITIES: No clubbing cyanosis or edema Laboratory Laboratory Tests Test 08/20/16 01:15 White Blood Count 14.4 Red Blood Count 4.04 Hemoglobin 8.0 Bedside Hemoglobin 10.5 Hematocrit 26.9 Bedside Hematocrit 31.0 Mean Corpuscular Volume 66.6 Mean Corpuscular Hemoglobin 19.8 Mean Corpuscular Hemoglobin 29.8 Concent Red Cell Distribution Width 24.6 Platelet Count 159 Mean Platelet Volume 9.0 Neutrophils (%) (Auto) 73.0 Lymphocytes (%) (Auto) 18.3 Monocytes (%) (Auto) 8.2 Eosinophils (%) (Auto) 0.1 Basophils (%) (Auto) 0.4 Neutrophils # (Auto) 10.5 Lymphocytes # (Auto) 2.6 Monocytes # (Auto) 1.2 Eosinophils # (Auto) 0.0 Basophils # (Auto) 0.1 CBC Comment AUTO DIFF Prothrombin Time 15.2 Prothromb Time International 1.4 Ratio Activated Partial 39.2 Thromboplast Time Bedside Sodium 129 Bedside Potassium 4.2 Bedside Chloride 87 Bedside Blood Urea Nitrogen 22 Bedside Creatinine 1.3 Bedside Glucose 93 Calcium Level 7.7 Magnesium Level 2.5 Total Creatine Kinase 975 Troponin I 0.13 B-Type Natriuretic Peptide 360 Result Diagram: 08/20/16114 Imaging Last 24 hours Impressions Chest X-Ray 08/20/16111 Signed Impressions: Service Date/Time: Saturday, August 20, 2016 01:11 - CONCLUSION: 1. Interval intubation and placement of nasogastric tube. 2. 3. Hazy mild opacity remains at the right lung base. This may represent infiltrate. Joby Luz MD Assessment and Plan Assessment and Plan Cardiac arrest - Due to ACS - Hypothermia protocol Acute coronary syndrome - Cardiac catheterization stat - Further per traveling missionary Respiratory failure - Due to above - No weaning during hypothermia protocol - Mechanical ventilation, vent bundle, DuoNeb's when necessary Diabetes - Insulin sliding scale Dyslipidemia - Atorvastatin DVT GI prophylaxis - Teds SCDs heparin - Pepcid Critical Care: The total critical care time was 35 minutes. Time to perform other separately billable procedures was not included in the critical care time. Jaspreet Bass MD August 20, 2016 02:08
[2016-08-20] MEDS ORDERED: DEXTROSE 50% IN WATER 50 ML VIAL(D50) IV PUSH PRN (02:15)
[2016-08-20] MEDS ORDERED: GLUCAGON 1 MG/ML VIAL OTHER PRN (02:15)
[2016-08-20 02:21] LABS: BLOOD GAS BASE EXCESS -11.5 mmol/L (-2-2); BLOOD GAS CARBOXYHEMOGLOBIN 1.6 % (0-4); BLOOD GAS HCO3 17 mmol/L (22-26); BLOOD GAS METHEMOGLOBIN 0.6 % (0-2); BLOOD GAS O2 HGB SATURATION 96 % (90-100); BLOOD GAS OXYGEN CONTENT 9.6 Vol % (12.0-20.0); BLOOD GAS PCO2 59 mmHg (38-42); BLOOD GAS PO2 149 mmHG (61-120); BLOOD GAS TOTAL HGB 6.9 G/DL (12.0-16.0); TEMP CORR TO 98.6
[2016-08-20 02:22] LABS: CRITICAL VALUE YES; DRAW SITE RT FEMORAL; FIO2 100 %; NUMBER OF ARTERIAL PUNCTURES 1; OXYGEN DEVICE VENTILATOR; STAT YES; VENT SETTINGS AC14/600 5 PEEP
[2016-08-20] MEDS ORDERED: NOREPINEPHRINE-DEXTROSE DRIP 250 ML IV SCH (03:00)
[2016-08-20] MEDS ORDERED: RESP: ALBUTEROL 2.5 MG/IPRATROPIUM 0.5 MG NEB (SCH) NEB (04:00)
[2016-08-20] MEDS ORDERED: CHLORHEXIDINE GLUCONATE 2 % 1 PACK (2 CLOTHS) TOP SCH (04:00)
[2016-08-20] MEDS ORDERED: SODIUM BICARBONATE 8.4% INJ 50 MEQ/50 ML SYR IV ONE (05:00)
[2016-08-20] MEDS ORDERED: NOREPINEPHRINE 4 MG/4 ML AMP IV ONE (05:00)
[2016-08-20] MEDS ORDERED: EPINEPHrine HCL (1:10,000) 1 MG/10 ML SYRINGE IV ONE ×2 (05:00)
[2016-08-20] MEDS ORDERED: ATROPINE SULFATE 1 MG/10 ML SYRINGE IV ONE (05:00)
[2016-08-20] MEDS ORDERED: INSULIN ASPART SUPPLEMENTAL SCALE SQ SCH (07:00)
[2016-08-20] MEDS ORDERED: FERROUS SULFATE 325 MG (65 MG ELEMENTAL IRON) TAB PO SCH (09:00)
[2016-08-20] MEDS ORDERED: predniSONE 20 MG TAB PO SCH (09:00)
[2016-08-20] MEDS ORDERED: FAMOTIDINE 20 MG/2 ML VIAL IV PUSH SCH (09:00)
[2016-08-20] MEDS ORDERED: SODIUM CHLORIDE 0.9% FLUSH 10 ML FLUSH SCH (09:00)
--- NOTE | 2016-08-21 16:13 | EKG ---
Date Performed: 08/20/2016 Time Performed: 01:02:07 PTAGE: 81 years EKG: Sinus rhythm WITH FIRST DEGREE AV BLOCK POSSIBLE LEFT ATRIAL ENLARGEMENT ST DEVIATION AND MODERATE T-WAVE ABNORMA LITY, CONSIDER ANTEROLATERAL ISCHEMIA Compared to the previous tracing anterior ST elevations seen in feriorly with lateral reciprocal changes are new. Clinical correlation is required. ABNORMAL ECG PREVIOUS TRACING : 08/15/2016 14.16 DOCTOR: Alvin Waite Interpretating Date/Time 08/21/2016 16:11:54
--- NOTE | 2016-08-23 11:22 | MD ---
cc: ARMANDO CASTELLANOS M.D. ADMISSION DATE: 08/20/2016 DISCHARGE DATE: 08/20/[address]-segment elevation myocardial infarction with cardiogenic shock. HOSPITAL COURSE I was called for a STEMI Alert and came into the hospital immediately. The patient onset of chest pain and had multiple arrests prior to getting to the [facility]. He was in [facility]. He was brought back with multiple doses of epinephrine, CPR, bicarbonate and atropine. Dr. Giuliana Harrington had the patient brought up to the to [facility] and the patient was in the [facility] on my arrival. The patient was having ongoing CPR. After multiple rounds of pressors and CPR, he regained a pulse so we decided to try to proceed with a salvage intervention. Before we could get him prepped, he arrested two more times, completely lost his pulse. We were performing ongoing CPR. At that time the family was brought back to the door of the [facility] and I spoke to them. The patient had a large number of family members present including his . I explained to the family the situation and they expressed a wish to see him. CPR was stopped. He had no pulse. He was pronounced at 02:02 a.m. He was placed on a stretcher and brought to the entrance of the [facility] for the family to spend 20 minutes with him. The Immigration Judge has been called. The cause of is acute ST-segment elevation myocardial infarction with cardiogenic shock. Armando Castellanos MD VEW/SSB /2:29 AM /11:17 AM
== END 2016-08-20 02:02 | disposition expired ==
LOC: NEPE 00:58 → NEDA 01:48 → HDIC 08-21 01:29 → NEDA 08-21 01:29
PROVIDERS: ADMIT Internal Medicine Critical Care Medicine; ATTEND Internal Medicine Critical Care Medicine
PROC: 5A1935Z Respiratory Ventilation, Less than 24 Consecutive Hours (ICD-10-PCS; principal; 2016-08-20)
PROC: 0BH17EZ Insertion of Endotracheal Airway into Trachea, Via Natural or Artificial Opening (ICD-10-PCS; 2016-08-20)
DX: I21.3 ST elevation (STEMI) myocardial infarction of unspecified site (principal); J96.90 Respiratory failure, unspecified, unspecified whether with hypoxia or hypercapnia; I46.9 Cardiac arrest, cause unspecified; E11.9 Type 2 diabetes mellitus without complications; E78.5 Hyperlipidemia, unspecified; I10 Essential (primary) hypertension; H91.90 Unspecified hearing loss, unspecified ear; F17.210 Nicotine dependence, cigarettes, uncomplicated; R00.1 Bradycardia, unspecified; Z79.84 Long term (current) use of oral hypoglycemic drugs; Z85.46 Personal history of malignant neoplasm of prostate; Z99.81 Dependence on supplemental oxygen
CPT/HCPCS: 31500; 36600; 51702; 71010; 82310; 82435; 82550; 82552; 82565; 82805; 82947; 82948; 83735; 83880; 84132; 84295; 84484; 84520; 85025; 85610; 85730; 92950; 93005; 94002; 94640; J0171; J0461; J1644; J1815; J2920; J7030